=== PATIENT | female | born 1985 | race Caucasian/White ===

== ENCOUNTER 2021-01-23 10:42 | Emergency (ER) | payer OTHER, SELFPAY ==
[2021-01-23 10:52] VITALS: BP 156/94; PULSE 98; RESP 16; TEMP 36.5; O2SAT 99
--- NOTE | 2021-01-23 10:53 | ED.FEMALEGU ---
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 This is associate with mild left, low back pain, prior to fever 101 p.o., and similar symptomatology to prior UTIs. No vomiting/diarrhea [she has nausea], vaginal discharge; back pain is worse with motion, better at rest-and therefore not colicky. She reports she has had prior renal imaging which was negative for kidney stones, for prior history of endometriosis with cysts, and left oophorectomy. Patient advised go to hospital if not improved Related Data Allergies Allergy/AdvReac Type Severity Reaction Status Date / Time No Known Allergies Allergy Unknown Verified 01/23/21 10:44 Review of Systems Review of Systems: The patient has been informed that they may have pre-hypertension or Hypertension based on a BP reading in the department. I recommend that the patient call the primary care provider listed on their discharge instructions or a physician of their choice this week to arrange follow up for further evaluation of possible pre-hypertension or Hypertension General/Constitutional: No weight loss,fever now Eyes: N0: Redness,discharge Ears/Nose/Throat: No: Epistaxis,ear discharge Respiratory: Denies: Hemoptysis Gastrointestinal: No Vomiting now, Bleeding-rectal Skin: No Lumps, eruption Neurologic: No Focal Weakness,Sz Hematologic: Denies: Petechiae/Purpura Psychiatric: No: Suicida ideationl All Other Systems: Reviewed and Negative Exam Narrative: General Appearance: Well nourished/obese well appearing, No distress EYE: PERRLA, Conjunctiva clear Ears: External ear normal Nose: Normal nose Mouth/Throat: Normal appearing, Normal lips Neck: Supple Respiratory: Airway patent, No respiratory distress Cardiovascular: RRR Abdomen: Soft, Non-tender, no CVAT Musculoskeletal: Full ROM Skin: Warm, Dry Neurological: A&O x3, CN II-X intact Psychiatric: Normal mood, Normal affect Course Vital Signs Vital signs: Vital Signs Temperature 97.7 F 01/23/21 10:52 Pulse Rate 98 01/23/21 10:52 Respiratory Rate 16 01/23/21 10:52 Blood Pressure 156/94 H 01/23/21 10:52 Pulse Oximetry 99 01/23/21 10:52 Temperature 97.7 F 01/23/21 10:52 Pulse Rate 98 01/23/21 10:52 Respiratory Rate 16 01/23/21 10:52 Blood Pressure 156/94 H 01/23/21 10:52 Pulse Oximetry 99 01/23/21 10:52 MDM - Female Genitourinary Lab Data Labs: Urine Glucose Negative Reference Range: Negative Urine Bilirubin Negative Reference Range: Negative Urine Ketone Negative Reference Range: Negative Urine Specific [place] 1.030 Reference Range:1.001-1.035 Urine Blood 3+ Reference Range: Negative * * Urine pH 5.5 Reference Range: 5.0-9.0 Urine Protein Negative Reference Range: Negative Urine Urobilinogen 0.2 Reference Range: 0.2-1.0 Urine Nitrate Negative Reference Range: Negative Urine Leukocyte Negative Referenc
== END 2021-01-23 11:26 | disposition home or self-care (01) ==
PROVIDERS: Emergency Provider Emergency Medicine
DX: N30.01 Acute cystitis with hematuria (principal)
CPT/HCPCS: 81003; 87086; 99213; G0463

== ENCOUNTER → 2021-06-08 00:04 | Outpatient (CLI) | payer OTHER, SELFPAY ==
[2021-06-08 16:46] LABS: SARS-CoV-2 RNA PCR Negative
== END ==
PROVIDERS: Visit Provider Obstetrics & Gynecology
DX: Z01.812 Encounter for preprocedural laboratory examination (principal); Z20.822 Contact with and (suspected) exposure to COVID-19
CPT/HCPCS: C9803; U0003; U0005

== ENCOUNTER 2021-06-10 14:40 | Outpatient (CLI) | payer OTHER, SELFPAY | END 2021-06-10 14:41 | disposition home or self-care (01) | LOC: ANHSURGERY 14:42 | PROVIDERS: Visit Provider Obstetrics & Gynecology | DX: N80.9 Endometriosis, unspecified (principal); Z01.818 Encounter for other preprocedural examination | CPT/HCPCS: 36415; 86850; 86900; 86901 ==

== ENCOUNTER 2021-06-12 01:48 | Day surgery (SDC) | payer OTHER, SELFPAY ==
[2021-06-05 10:43] VITALS: BMI 40.0
--- NOTE | 2021-06-05 10:58 | PC.NURSE ---
Report to the Outpatient Waiting Room, entrance under the green pavilion located off [facility], at time 6:00 on date 06/12/21. OR Time: 7:30. - You and your visitor will be asked a series of questions to screen for COVID 19 for your protection. - A mask is required within the hospital. One visitor will be allowed to accompany the patient into the hospital. Patients visitor will be instructed to remain with patient at all times or leave the building. We will allow the visitor to come back to the postoperative area when patient is ready. Preoperative COVID Testing Requirements: COVID TEST 06/08 AT 8:30 No COVID Test needed if: (proof is required; if not received patient will have Rapid Test prior to entry) - Patient has received COVID Vaccine at least 14 days prior to procedure date or - Patient has positive COVID test result within last 90 days of surgery date. COVID Test needed if above criteria is not met If not COVID vaccinated a COVID test must be conducted within 72 hours of surgery and patient is asked to isolate self from time of testing until procedure. You will go to the [facility] for your COVID testing. The [facility] site is located at the corner of [address] [facility]. You will only be called if COVID results are positive and your surgeon may reschedule your elective surgery date. Patients may have clear liquids (water, carbonated beverages, clear teas, apple juice) until 3 hours prior to surgery (4:30) with a maximum of 20 ounces. - No food from midnight until time of surgery Take the following medications with a SIP of water the morning of surgery: NONE Medications to discontinue per physician: N/A Date to take last dose: N/A Please no make-up, nail maltese, hairspray, perfume, deodorant, or body powder the day of surgery. No jewelry (including any body piercings) or valuables the day of surgery, leave them at home. Please take a shower or bath the night before, or the morning of, surgery with an antibacterial soap. Wear comfortable, loose fitting clothing. - Jewelry must be removed prior to entering the operating room. Rings and piercings that are not removed may be cut off. - The hospital will not accept responsibility for valuables. - Please leave all valuables, including medications, at home the day of surgery. If you are going home after surgery, a licensed truck driver rubbish collector must drive you home. - NO public transportation without another adult. - We recommend that an adult stay with you for 24 hours following discharge. - We also recommend that you do not drive, make important decision, drink alcoholic beverages, or take any drugs that were not prescribed by your health care provider for at least 24 hours after your discharge time. Follow any additional instructions given to you from your surgeon. Telephone instructions given to DUKE PEDERSEN and asked if any additional questions and then verbalized understanding. Patient advised to call surgeon office or pre surgery nurse liaison [phone] if any additional questions.
[2021-06-12] VITALS (9 sets, daily range): BP systolic 132–150; BP diastolic 72–92; PULSE 87–112; RESP 16–20; TEMP 36.4–37.1; O2SAT 94–100
[2021-06-12] MEDS: ACETAMINOPHEN 500 MG TABLET 1000 MG PO (06:10)
[2021-06-12] MEDS: KETOROLAC 15 MG/ML VIAL (*BKC) IV PUSH (06:38)
--- NOTE | 2021-06-12 06:47 | WPDANESEPPF ---
Anes - Initial Pre Proc Eval Procedure: Operation Date: 06/12/21 07:30 Proposed Procedures p Total Laparoscopic Hysterectomy with Bilateral Salpingectomy - Rashid Sarabia MD Date/Time: 06/12/21 06:47 Surgeon: Rashid Sarabia MD Pre Op Diagnosis: Endometriosis Menorrhagia Patient Data Age: 36 Gender: F Height: 1.6 m Weight: 99.6 kg Allergies Allergy/AdvReac Type Severity Reaction Status Date / Time No Known Allergies Allergy Unknown Verified 06/12/21 05:58 Home Medications Medication Instructions Recorded Confirmed Type linaclotide 72 mcg capsule 72 mcg PO DAILY PRN 30 Days #30 cap 05/31/21 06/12/21 Rx Patient hx anesthesia problems: none Family hx anesthesia problems: none Results Review: All pre-operative results and documents have been reviewed as part of the pre-operative evaluation. [facility] Past Medical History Medical History (Updated 06/12/21 @ 06:47 by Dalton Rosa MD) Constipation Endometriosis Family hx of colon cancer GERD (gastroesophageal reflux disease) Obesity Surgical History Surgical History (Updated 06/12/21 @ 06:47 by Dalton Rosa MD) H/O laparoscopy Social History Social History Smoking status: Never smoker Alcohol intake: current Alcohol use details: EVERY OTHER MONTH Substance use: never Substance use type: does not use Living arrangements: with family Spiritual care concerns: No Anes - Eval Final PreProcedure Day of Procedure 06/12/21 06:47 Patient weight: obese Heart: regular rate and rhythm Lungs: clear to auscultation Airway: Mallampati scale class III Neurological: alert and oriented Last oral intake: >/= 8 hours ASA classification: III Emergent: no Anesthetic plan: proceed Anesthesia type and monitoring: general ETT and standard monitoring Results Review: All pre-operative results and documents have been reviewed as part of the pre-operative evaluation. Informed Consent: The patient's anesthetic plan and its attendant risks and benefits were discussed with the patient/family/POA. Questions were solicited and answers provided to the satisfaction of the patient/family/POA.
[2021-06-12] MEDS: LACTATED RINGERS 1,000 ML 30 ML IV CONT ×2 (06:57→11:54)
[2021-06-12] MEDS: SCOPOLAMINE 1.5 MG PATCH TRANSDERM (06:57)
--- NOTE | 2021-06-12 07:13 | WPDHPUPDATE1 ---
History and Physical Update Update Date/Time: 06/12/21 07:13 History and Physical has been reviewed, including an updated exam of the patient. There are NO changes in the patient's condition. Risks, benefits, and alternatives have been discussed and questions answered. Patient agrees to proceed with procedure.
[2021-06-12] MEDS: ceFAZolin 2 GM/D5W 50 ML 2 GM/50 ML BAG IVPB (07:30)
--- NOTE | 2021-06-12 08:45 | SUR.OPER ---
Dr Cruz in OR [id number] consult for bowel adhesion.
--- NOTE | 2021-06-12 10:33 | SUR.OPER ---
position maintained and urine remains yellow.
[2021-06-12] MEDS: ceFAZolin SODIUM 1 GM VIAL IV PUSH (11:22)
--- NOTE | 2021-06-12 11:47 | W.PM.PROC2 ---
Procedure Note - Detailed Date of Procedure 06/12/21 Pre-op Diagnosis Endometriosis, Menorrhagia Post-op Diagnosis same (Abdominal and pelvic adhesions, extensive) Procedure Performed Total laparoscopic hysterectomy and right salpingo-oophorectomy, adhesiolysis-1.5 hours Surgeon Rashid Sarabia MD Anesthesia general Indications Pelvic pain, endometriosis Findings Moderate sized uterus, normal appearing right ovary and normal-appearing right tubes. Adhesions between the colon and the anterior abdominal wall, the omentum and the anterior abdominal wall, the rectum and the left adnexa and uterus. There was dense scar tissue in the left adnexa and the paracervical tissue bilaterally. There was dense scar tissue in the posterior cervical area and the rectum in the cul-de-sac. Description of Procedure This patient was taken to the operating room. She was prepped and draped in the dorsal lithotomy position after induction of general anesthesia. The uterine manipulator and Ksenia cup were placed. This was done with a speculum and tenaculum. The speculum was placed. The cervix was grasped with a tenaculum. The stay sutures were placed at 3 and 9:00 a.m.. The stay sutures of 0 Vicryl were brought through the appropriately sized Ksenia cup. The tip of the TONG manipulator was placed in the intrauterine cavity. The cup was slid into place around the cervix and into the fornices. It was locked into place. The sutures were then wrapped around the handle and tied under tension. A 5 mm skin incision was made in the left upper quadrant the abdomen. A 5 mm trocar was inserted into the intrauterine cavity under direct visualization of the scope. Pneumoperitoneum was achieved. A left lower quadrant 11 mm incision was made with scalpel. An 11 mm trocar was inserted into the anterior abdominal cavity under direct visualization the scope. A 5 mm infraumbilical incision was made with a scalpel and a 5 mm trocar was inserted the intra-abdominal cavity under direct visualization of the scope. During the course of this surgery extensive he has a lysis was performed. There was intra-abdominal adhesions between the colon and the omentum to the anterior abdominal wall. The colon and rectum were adherent to the left adnexa. There was dense scar tissue in the left adnexa and the posterior cervix/cul-de-sac. The paracervical tissue bilaterally was dense and had the consistency of leather. It was difficult to grasp and difficult to cut. It was vascular. This surgery was a lengthy struggle with scar tissue. The adhesion lysed on the sharp and dull blunt dissection, cautery, scissors, LigaSure. Bilateral ureteral lysis was performed. It was very difficult due to the scar tissue present. This was done from the pelvic brim down to the uterine artery. This was done with careful dissection using sharp and blunt dissection. On the right the infundibulopelvic ligaments were isolated after identification of the ureters bilaterally on the right infundibulopelvic ligaments were cauterized and transected with LigaSure cautery. On the right-The para ovarian tissue was cauterized and transected with LigaSure cautery bilaterally. Moving around the ovary into the broad ligament the tissue was cauterized transected with LigaSure cautery. The round ligaments were cauterized transected with LigaSure cautery. In a stepwise fashion along the lateral aspects of the uterus the round ligament and broad ligaments were cauterized transected down to the level of the uterine arteries. A bladder flap was created in the bladder was moved distally to the end of the cervix and over the Ksenia cup. The bilateral uterine arteries were cauterized and transected. Colpotomy was then performed. In a circumferential fashion the vagina was transected using unipolar cautery. The incision was made down on the Ksenia cup. The uterus, cervix, fallopian tubes and ovaries were taken out through the vagina. A pneumo
[2021-06-12] MEDS: fentaNYL CITRATE INJ (*CRX) 100 MCG/2 ML VIAL 25 MCG IV PUSH ×4 (12:19→12:38)
[2021-06-12] MEDS: DEXTROSE 5%/0.45% SOD CHL 1,000 ML 125 ML IV CONT (13:15)
[2021-06-12] MEDS: KETOROLAC 30 MG/ML VIAL (*BKC) IV PUSH (14:27)
[2021-06-12] MEDS: HYDROcodone/acetaminophen (*CRX) 5-325 MG TABLET 1 TAB PO ×2 (17:18→19:51)
[2021-06-13] MEDS: HYDROcodone/acetaminophen (*CRX) 10-325 MG TABLET 1 TAB PO ×2 (03:50→09:18)
[2021-06-13] MEDS: IBUPROFEN 600 MG TABLET PO ×2 (03:50→09:18)
[2021-06-13 03:53] VITALS: BP 130/84; PULSE 106; RESP 16; TEMP 36.6
--- NOTE | 2021-06-13 08:03 | P.PNOB_ITS ---
TRANSACTIONAL ATTORNEY - A/P Postoperative Procedures: Procedures Operation Date: 06/12/21 07:30 Actual Procedure Side Surgeon p Total Laparoscopic Hysterectomy with Right Salpingo-Oophorectomy,Lysis of Adhesions Bilateral Rashid Sarabia MD Postoperative day: 1 Postoperative status: doing well Postoperative plan: see orders Time Spent With Patient Time: Total time spent is greater than 50% in coordination of care (as documented) at patient's floor/unit and/or counseling patient: Time with patient: less than 15 minutes TRANSACTIONAL ATTORNEY- PN:Subj Post-Op Subjective Date/time seen: 06/13/21 08:03 Subjective: patient reports feeling better, patient has no complaints and pain is well controlled Exam Const: General: healthy appearing, comfortable and no acute distress Resp: Auscultation: clear to auscultation bilaterally, no rales, no rhonchi and no wheezes Cardio: Rate: regular rate Heart sounds: no click, no murmurs and no rubs GI: Inspection: non-distended Auscultation: normal bowel sounds Extrem: General: normal to inspection, no pedal edema and no calf tenderness TRANSACTIONAL ATTORNEY - PN: Obj Data Vital Signs Vital Signs: Vital Signs - 24 hr 06/12/21 11:54 06/12/21 12:05 06/12/21 12:20 Temperature 97.6 F Pulse Rate 104 H 101 H 105 H Respiratory Rate 17 20 16 Blood Pressure 141/79 H 148/86 H 143/81 H Pulse Oximetry 99 100 99 06/12/21 12:35 06/12/21 12:50 06/12/21 13:20 Temperature 98.3 F Pulse Rate 104 H 106 H 104 H Respiratory Rate 20 18 20 Blood Pressure 132/74 133/72 150/92 H Pulse Oximetry 94 94 98 06/12/21 16:20 06/12/21 20:25 06/13/21 03:53 Temperature 98.2 F 97.8 F Pulse Rate 98 112 H 106 H Respiratory Rate 20 16 16 Blood Pressure 143/86 H 142/92 H 130/84 Pulse Oximetry 97 Intake/Output Intake/Output: Intake & Output 06/10/21 06/11/21 06/12/21 06/13/21 23:59 23:59 23:59 23:59 Intake Total 650 Output Total 390 Balance 260 Meds/Results Medications: Active Medications Generic Name Dose Route Start Last Admin Trade Name Freq PRN Reason Stop Dose Admin Hydrocodone Bitart/Acetaminophen 1 tab 06/12/21 12:58 06/12/21 19:51 Hydrocodone/Acetaminophen (*Crx) 5-325 Mg Tablet PO 1 tab Q3H PRN Administration Pain Rated 5 or Less Hydrocodone Bitart/Acetaminophen 1 tab 06/12/21 12:58 06/13/21 03:50 Hydrocodone/Acetaminophen (*Crx) 10-325 Mg Tablet PO 1 tab Q3H PRN Administration Pain Rated 6 or Greater Ibuprofen 600 mg 06/12/21 12:58 06/13/21 03:50 Ibuprofen 600 Mg Tablet PO 600 mg Q6H PRN Administration Cramping Miscellaneous Information 0 each 06/12/21 00:01 Linzess 72 Mcg Is Nonformulary - Can Patient Bring From Home? XX 07/12/21 00:00 CLARIFY DAWNA Non-Formulary Medication 72 mcg 06/12/21 12:58 Linaclotide [Linzess] PO DAILY PRN constipation
[2021-06-13 08:50] VITALS: BP 129/86; PULSE 100; RESP 20; TEMP 36.8; O2SAT 97
== END 2021-06-13 11:15 | disposition home or self-care (01) ==
LOC: ANHSURGERY 05:46 → ANHOB2 13:01
PROVIDERS: Visit Provider Obstetrics & Gynecology
PROC: 0UT9FZZ Resection of Uterus, Via Natural or Artificial Opening With Percutaneous Endoscopic Assistance (ICD-10-PCS; CPT 58571; principal; 2021-06-12 07:30)
DX: N92.0 Excessive and frequent menstruation with regular cycle (principal); N80.3 Endometriosis of pelvic peritoneum; N73.6 Female pelvic peritoneal adhesions (postinfective); R10.2 Pelvic and perineal pain; N88.8 Other specified noninflammatory disorders of cervix uteri; N80.0 Endometriosis of uterus; N83.01 Follicular cyst of right ovary; K21.9 Gastro-esophageal reflux disease without esophagitis; E66.9 Obesity, unspecified; Z68.38 Body mass index [BMI] 38.0-38.9, adult
CPT/HCPCS: 58571; 36415; 86850; 86900; 86901; 88307; 99199; A9270; C9803; J0330; J0360; J0690; J1100; J1170; J1885; J2250; J2704; J2710; J2765; J3010; J7030; J7120; U0003; U0005

== ENCOUNTER 2021-06-21 17:04 | Observation (INO) | payer OTHER, SELFPAY ==
--- NOTE | ~2021-06-21 | CT_ITS ---
EXAMINATION: CT abdomen pelvis w con DATE: 06/21/2021 18:32 INDICATION: Hysterectomy last Thursday. Fever, frequency and urgency while urinating. TECHNIQUE: Computed tomography (CT) of the abdomen and pelvis was performed with 100 cc Omnipaque 350 intravenous contrast. The dose-length product was 1362.97 mGy-cm. Automated exposure control and iterative reconstruction technique were employed. COMPARISON: CT dated 06/24/2014 FINDINGS: Lung bases unremarkable. Heart size normal. There are gallstones. There are calcified granu jarocho in the spleen. The liver, pancreas, adrenal glands and kidneys are unremarkable. There is fluid , fat stranding and gas in the hysterectomy bed, likely postoperative, although infection is not excl uded. Nonobstructive bowel gas pattern. No acute osseous abnormality. There is mild thickening of the bladder, although this is not well distended. IMPRESSION: 1. Fluid, fat stranding and gas in the hysterectomy bed which may be postsurgical, although infection is not excluded. 2: Cholelithiasis. 3: Mild bladder wall thickening which may be due to underdistention, although cystitis not excluded. Reviewed, dictated and finalized at location A. OYEE DEVELOPMENT DIRECTOR IMPRESSION: 1. Fluid, fat stranding and gas in the hysterectomy bed which may be postsurgic al, although infection is not excluded. 2: Cholelithiasis. 3: Mild bladder wall thickening which may be due to underdistention, although cystitis not excluded.
--- NOTE | ~2021-06-21 | XR_ITS ---
EXAMINATION: XR chest 2V 06/21/2021 17:59 INDICATION: Postop fever. PROCEDURE: 2 view chest COMPARISON: No prior studies for comparison. FINDINGS: The lungs are clear. The cardiomediastinal silhouette is within normal limits. There are no pleural effusions. There is no pneumothorax suspected. IMPRESSION: 1: NO ACUTE CARDIOPULMONARY DISEASE. Reviewed, dictated and finalized at location A. INSULATOR RUBBER
[2021-06-21 17:07] VITALS: BP 141/94; PULSE 124; RESP 20; TEMP 37.2; O2SAT 100
--- NOTE | 2021-06-21 17:30 | ED.FEVER ---
HPI - Fever General Chief Complaint: Fever <Diane Nunez PA-C - Last Filed: 06/21/21 19:46> Stated Complaint: Fever <GILDARDO Valentin Last Filed: 06/21/21 19:46> Time Seen by Provider: 06/21/21 17:11 <Diane Nunez PA-C - Last Filed: 06/21/21 19:46> Source: patient <GILDARDO Valentin Last Filed: 06/21/21 19:46> Mode of arrival: ambulatory <GILDARDO Valentin Last Filed: 06/21/21 19:46> Limitations: no limitations <GILDARDO Valentin Last Filed: 06/21/21 19:46> History of Present Illness HPI Narrative: This is a 36-year-old female who presents to the ED with complaints of postop fever. Patient reports she had a hysterectomy with bilateral salpingectomy and left oophorectomy done last Thursday, 06/12, done by Dr. Sarabia. She states a few days after surgery she began urinating more frequently throughout the day. She is only urinating very small amounts and feels like she is not completely emptying her bladder. She reports some mild discomfort at the end of micturition, but denies any burning throughout. Yesterday, she developed hematuria, stating she noticed a few drops of bright red blood at the end of micturition. She reports 3-4 episodes of this hematuria. She denies any vaginal bleeding or discharge. She then developed a fever up to 101.8 ?F last night. She took Tylenol and ibuprofen and states her fever broke overnight. This morning her temperature was in the low 100s. She discussed this with Dr. Sarabia, who recommended she present to the ED for further evaluation. Patient also mentions having constipation. She had a bowel movement 2 days after surgery and another early this week, but has not had a BM in the last couple days. She has history of constipation and has been taking MiraLAX. Patient otherwise denies any abdominal pain, back pain, nausea, vomiting, rectal bleeding, cough, chest pain, shortness of breath. <GILDARDO Valentin Last Filed: 06/21/21 19:46> Related Data Allergies/Adverse Reactions: Allergies Allergy/AdvReac Type Severity Reaction Status Date / Time No Known Allergies Allergy Unknown Verified 06/21/21 19:23 <Diane Nunez PA-C - Last Filed: 06/21/21 19:46> Review of Systems Review of Systems: CONSTITUTIONAL: Reports fever, chills, and sweats. ENT: Denies rhinorrhea, congestion. CARDIOVASCULAR: Denies chest pain or edema. RESPIRATORY: Denies cough or dyspnea. GASTROINTESTINAL: Denies abdominal pain, nausea, vomiting, or diarrhea. GENITOURINARY: Reports urinary frequency, end micturition discomfort, and hematuria. GENITAL: Denies vaginal bleeding, discharge, or discomfort. MUSCULOSKELETAL: Denies back pain, joint pain, or myalgia. NEUROLOGIC: Denies headache, numbness, or weakness. <Diane Nunez PA-C - Last Filed: 06/21/21 19:46> All systems reviewed & are unremarkable except as noted in HPI and below <Diane Nunez PA-C - Last Filed: 06/21/21 19:46> [facility] Past Medical History Medical History: Medical History (Updated 06/21/21 @ 19:09 by Diane Nunez PA-C) Constipation Endometriosis Family hx of colon cancer GERD (gastroesophageal reflux disease) Obesity <Diane Nunez PA-C - Last Filed: 06/21/21 19:46> Surgical History Surgical History: Surgical History (Updated 06/21/21 @ 19:09 by Diane Nunez PA-C) H/O bilateral salpingectomy H/O hysterectomy with unilateral oophorectomy H/O laparoscopy History of endometrial ablation History of right oophorectomy History of tonsillectomy <Diane Nunez PA-C - Last Filed: 06/21/21 19:46> Social History Social History: Social History Smoking status: Never smoker Alcohol intake: current Alcohol use details: EVERY OTHER MONTH Substance use: never Substance use type: does not use Spiritual care concerns: No <Diane Nunez PA-C - Last Filed: 06/21/21 19:46> Exam Narrative:
[2021-06-21] MEDS: SODIUM CHLORIDE 0.9% IV 1,000 ML 999 ML IV CONT (17:51)
[2021-06-21 18:01] LABS: Basophils Absolute Auto 0.1 K/mm3 (0.0-0.1); Basophils Percent Auto 0.4 % (0.2-1.2); Eosinophils Absolute Auto 0.2 K/mm3 (0-0.3); Eosinophils Percent Auto 0.8 % (0-4.4); Hemoglobin 9.8 g/dL (12.0-15.0); Immature Granulocyte Absolute 0.15 K/mm3 (0.00-0.031); Immature Granulocyte Percent A 0.8 % (0-0.5); Lymphocytes Absolute Auto 2.11 K/mm3 (0.9-3.2); Lymphocytes Percent Auto 10.6 % (18.3-44.2); Mean Corpuscular HGB Conc 31.6 g/dl (32-36); Mean Corpuscular Hemoglobin 27.1 pg (26-34); Mean Corpuscular Volume 85.6 fl (80-100); Mean Platelet Volume 10.6 fl (7.4-10.4); Monocytes Absolute Auto 1.4 K/mm3 (0.1-0.6); Neutrophils Percent Auto 80.4 % (45.5-73.1); Platelet Count Result 412 k/mm3 (150-375); Red Blood Count 3.62 M/mm3 (4.2-5.4); Red Cell Distribution Width 13.7 % (11.5-14.5); White Blood Count 19.9 K/mm3 (4.5-10.0)
[2021-06-21 18:07] LABS: Add Urine Microscopic? YES; Appearance Urine Cloudy (Clear); Bacteria Urine Trace /hpf; Bilirubin Urine Negative (Negative); Blood Urine 2+ (Negative); Color Urine Yellow (Yellow); Glucose Urine UA Negative (Negative); Ketones Urine Negative (Negative); Leukocyte Esterase Ur 3+ LEU/UL (Negative); Mucus Urine Rare /lpf; Nitrate Urine Negative (Negative); Protein Urine 1+ mg/dL (Negative); Specific Grav Ur 1.018 (1.001-1.035); Squamous Epithelial Cell Urine Many /hpf (Few); WBC Urine >75 /hpf
[2021-06-21 18:09] LABS: Alanine Aminotransferase 24 U/L (4-35); Albumin Level 4.4 g/dL (3.5-5.1); Alkaline Phosphatase 108 U/L (38-126); Anion Gap 9 mmol/L (8-16); Aspartate Amino Transferase 23 U/L (14-36); Bilirubin,Total 0.3 mg/dL (0.2-1.3); Blood Urea Nitrogen 6 mg/dL (7-17); Calcium 8.8 mg/dL (8.4-10.2); Carbon Dioxide 26 mmol/L (22-30); Chloride 103 mmol/L (98-107); Estimated CRCL calculation 147 ml/min; Estimated Glomerular Filt Rate > 60; Glucose 125 mg/dL (65-110); Potassium 3.7 mmol/L (3.4-5.0); Sodium 138 mmol/L (137-145)
[2021-06-21 19:43] VITALS: BP 138/72; PULSE 88; RESP 20; O2SAT 99
[2021-06-21 19:45] LABS: Lactic Acid Reflex 0.8 mmol/L (0.7-2.1)
[2021-06-21 19:49] LABS: EDCOVIDSCREEN Negative (Negative)
[2021-06-21 20:31] VITALS: BP 148/72; PULSE 117; RESP 18; O2SAT 99
[2021-06-21 21:28] VITALS: BMI 39.9
[2021-06-21 21:41] VITALS: TEMP 38.4
[2021-06-21 22:00] VITALS: BP 127/58; PULSE 119; RESP 18; TEMP 38.4; O2SAT 96
--- NOTE | 2021-06-21 22:11 | PC.NURSE ---
This patient, Destiny Judge, was admitted to Medical Room 340-01. Patient/family oriented to hospital policies and general routines including ID bracelet, bed and alarms, visiting hours, pain management, procedures, bathroom and other care routines, personal items, smoking policy, room service/diet, and visiting hours. Information on how to activate the Rapid Response Team has been discussed. Patient/Family are encouraged to report perceived risks to care and to ask questions if they do not understand what they are told or what they should do.
[2021-06-21 23:34] VITALS: TEMP 37.4
[2021-06-22 06:00] VITALS: BP 137/87; PULSE 99; RESP 18; TEMP 36.4; O2SAT 98
[2021-06-22 07:15] VITALS: TEMP 36.4
[2021-06-22 08:00] VITALS: PULSE 99; RESP 18; O2SAT 98
--- NOTE | 2021-06-22 12:23 | PM.IMHP ---
H&P: HPI History of Present Illness Date/Time: 06/22/21 12:23This patient is a 36-year-old female who presented emergency department with a fever on urinary symptoms. She was evaluated there considered to have urinary tract infection. She had elevated white count. She was placed on the medical floor and observed a given IV antibiotics. She did have a febrile episode in the evening/ nighttime hours. She denies any nausea, vomiting, chills. Denies any chest pain or shortness of breath. she denies any heavy vaginal bleeding, she does have some spotting from time to time. She denies any flank pain. Chief Complaint: Fever Review of Systems Review of Systems: All systems reviewed & are unremarkable except as noted in HPI and below Constitutional: Constitutional: Denies chills, Denies fatigue, Denies fever(s) and Denies weakness Eyes: Eyes: Denies blurry vision, Denies change in vision, Denies loss of peripheral vision, Denies loss of vision, Denies other visual disturbances and Denies eye pain ENT: Denies vertigo, Denies dizziness, Denies hearing loss, Denies mouth pain, Denies nasal obstruction, Denies neck mass and Denies neck pain Cardiovascular: Cardiovascular: Denies chest pain, Denies diaphoresis, Denies syncope, Denies leg edema and Denies dyspnea Respiratory: Respiratory: Denies chest congestion, Denies cough, Denies hemoptysis, Denies dyspnea and Denies wheezing Gastrointestinal: Gastrointestinal: Denies abdominal pain, Denies constipation, Denies diarrhea, Denies nausea and Denies vomiting Genitourinary: Genitourinary: Denies hematuria, Denies change in libido, Denies nocturia, Denies genital lesions, Denies flank pain and Denies urinary urgency Musculoskeletal: Musculoskeletal: Denies abnormal gait, Denies back pain, Denies myalgias, Denies arthralgias, Denies joint swelling, Denies muscle weakness and Denies neck pain Integumentary/Breasts: Skin/Breast: Denies swelling, Denies breast pain, Denies breast mass, Denies dry skin, Denies nipple discharge, Denies unusual bruising and Denies jaundice Neurologic: Denies Neuro-related abnormal movements, Denies Abnormal speech present, Denies abnormal gait, Denies behavioral changes, Denies confusion, Denies vertigo, Denies dizziness, Denies syncope, Denies loss of vision, Denies memory loss, Denies convulsions and Denies weakness Psychiatric: Psychiatric: Denies abnormal sleep pattern, Denies behavioral changes, Denies change in libido, Denies confusion, Denies depression, Denies anhedonia and Denies memory loss Endocrine: Endocrine: Reports no additional endocrine complaints, Denies change in libido and Denies fatigue Hematologic/Lymphatic: Hematologic/Lymphatic: Reports no additional hematologic/lymphatic complaints Allergic/Immunologic: Allergic/Immunologic: Reports no additional allergic/immunologic complaints and Denies wheezing PMFSH Past Medical History Medical History (Updated 06/21/21 @ 19:09 by Diane Nunez PA-C) Constipation Endometriosis Family hx of colon cancer GERD (gastroesophageal reflux disease) Obesity Surgical History Surgical History (Updated 06/21/21 @ 19:09 by Diane Nunez PA-C) H/O bilateral salpingectomy H/O hysterectomy with unilateral oophorectomy H/O laparoscopy History of endometrial ablation History of right oophorectomy History of tonsillectomy Social History Social History Smoking status: Never smoker Alcohol intake: never Alcohol use details: EVERY OTHER MONTH Substance use: never Substance use type: does not use Spiritual care concerns: No Meds Home Medications and Allergies Home Medications Medication Instructions Recorded Confirmed Type linaclotide 72 mcg capsule 72 mcg PO DAILY PRN 30 Days #30 cap 05/31/21 06/21/21 Rx hydrocodone-acetaminophen 1 tablet PO Q4H PRN #25 tablet 06/13/21 06/21/21 Rx estradiol 1 mg PO DAILY 06/21/21 06/21/21 History
[2021-06-22] MEDS: NITROFURANTOIN MONOHYD MACROCR 100 MG CAP PO ×2 (13:01→20:59)
[2021-06-22 15:44] VITALS: BP 143/89; PULSE 101; RESP 16; TEMP 37.4; O2SAT 100
[2021-06-22] MEDS: HYDROcodone/acetaminophen (*CRX) 10-325 MG TABLET 1 TAB PO (18:05)
[2021-06-22 20:58] VITALS: BP 149/78; PULSE 101; RESP 18; TEMP 36.1; O2SAT 98
[2021-06-23] MEDS: HYDROcodone/acetaminophen (*CRX) 10-325 MG TABLET 1 TAB PO (04:39)
[2021-06-23 06:18] VITALS: BP 131/83; PULSE 98; RESP 16; TEMP 37.3; O2SAT 98
[2021-06-23 07:35] VITALS: PULSE 98; RESP 16; O2SAT 98
[2021-06-23] MEDS: NITROFURANTOIN MONOHYD MACROCR 100 MG CAP PO (09:26)
--- NOTE | 2021-06-23 12:24 | P.DS_ITS ---
DS: Admitting Diagnosis Discharge Date 06/23/21 Admitting Diagnosis Urinary tract infection DS: Discharge Diagnosis Discharge Diagnosis (1) Urinary tract infection: Qualifiers: Hematuria presence: with hematuria Urinary tract infection type: acute cystitis Qualified Code(s): N30.01 - Acute cystitis with hematuria Code(s): N39.0 - Urinary tract infection, site not specified Status: Acute DS: Summary Hospital Course Hospital Course: This patient is a 36-year-old female who is 4 days postop from a total laparoscopic hysterectomy. She was admitted through the emergency department with fever and urinary symptoms in leukocytosis. She was given IV antibiotics and observed. She did have 1 febrile episode documented. Antibiotics were continued for over 24 hours and she was to be discharged today. Status at Discharge Functional status at discharge: independent ambulation Time Spent with Patient Time attestation: Total time spent providing and/or coordinating discharge services: Time spent: Less than 30 minutes DS: Data Data Completed and Pending Labs on day of discharge: Preliminary micro results at discharge 06/21/21 19:28 Blood Culture - Preliminary Blood 06/21/21 19:28 Blood Culture - Preliminary Blood Discharge Plan Discharge Discharging Clinician: Rashid Sarabia Patient Disposition: Home, Self-Care Activity: pelvic rest Diet: regular Patient Instructions: Antibiotic Form Stand Alone Forms: General Discharge Information Follow-up/Referrals: Rashid Sarabia MD [Physician] - Discharge Medications: New nitrofurantoin monohyd/m-cryst [Macrobid] 100 mg Capsule 100 mg PO Q12HR 7 Days Qty: 14 RF: 0 Continued Linzess 72 mcg capsule 72 mcg PO DAILY PRN (Reason: constipation) 30 Days Qty: 30 RF: 2 estradiol 1 mg Tablet 1 mg PO DAILY RF: 0 polyethylene glycol 3350 [Miralax] 17 gram/dose Powder 17 g PO DAILY RF: 0 hydrocodone-acetaminophen 5-325 mg tablet 1 tablet PO Q4H PRN (Reason: pain) Qty: 25 RF: 0 Date of admission: 06/21/21 19:15 Primary Care Provider: PHYSICIAN,LITHOGRAPH PRINTER Admitting Provider: Rashid Sarabia Attending physician on admission: Rashid Sarabia Condition: Stable
== END 2021-06-23 14:25 | disposition home or self-care (01) ==
LOC: ANHED 19:09 → ANH3MED 20:32
PROVIDERS: Physician Assistant; Admitting Provider Obstetrics & Gynecology; Emergency Provider Emergency Medicine; Visit Provider Obstetrics & Gynecology
DX: N30.01 Acute cystitis with hematuria (principal); R50.9 Fever, unspecified; Z98.890 Other specified postprocedural states; K21.9 Gastro-esophageal reflux disease without esophagitis; Z20.822 Contact with and (suspected) exposure to COVID-19
CPT/HCPCS: 36415; 71046; 74177; 80053; 81001; 83605; 85025; 87040; 87086; 87088; 87426; 96361; 96365; 96367; 96375; 99285; A9270; C9803; G0378; J0131; J0696; J7030; Q9967

== ENCOUNTER 2022-04-22 07:50 | Emergency (ER) | payer SELFPAY ==
--- NOTE | ~2022-04-22 | CT_ITS ---
EXAMINATION: CT abdomen pelvis wo con DATE: 04/22/2022 09:16 INDICATION: Right flank pain TECHNIQUE: Computed tomography (CT) of the abdomen and pelvis was performed without intravenous contr ast. Automated exposure control and iterative reconstruction technique were employed. Exam dose: 139 0.10 mGy-cm total exam DLP. COMPARISON: 06/21/2021 CT abdomen pelvis with IV contrast material FINDINGS: The lung bases are clear. Heart size is within normal limits. No pericardial or pleural eff usion. At least 2 large faceted gallstones are noted, measuring up to 1.7 cm. No gallbladder wall thickening or pericholecystic fluid or fat stranding. No bile duct or pancreatic duct dilatation. No hepatic, splenic, pancreatic or adrenal space-occupying mass lesion. There is right nephromegaly, prominent right hydronephrosis and perinephric stranding due to an appro ximately 5.9 mm right ureteropelvic junction calculus. No other urinary tract calculus. No left hydroureteronephrosis. No renal space occupying mass lesion is evident on this limited noncontrast examination. The urinary bladder is unremarkable. Status post hysterectomy. Normal caliber of the abdominal aorta. There is some nonspecific small shotty nodes in the right lowe r quadrant. No intraperitoneal or retroperitoneal or pelvic mass lesion or adenopathy or ascites is d etected. Small fat-containing umbilical hernia. Bilateral osteitis condensans ilii. T9 vertebral body hemangioma. IMPRESSION: Approximately 5.9 mm obstructing right ureteropelvic junction calculus, hydronephrosis a nd perinephric stranding Cholelithiasis Reviewed, dictated and finalized at [facility]. Reviewed, dictated and finalized at [facility] VIORAL INTERVENTIONIST IMPRESSION: Approximately 5.9 mm obstructing right ureteropelvic junction calc ulus, hydronephrosis and perinephric stranding Cholelithiasis
--- NOTE | ~2022-04-22 | XR_ITS ---
Supine and upright views of the abdomen Clinical history: Right flank pain, UPJ stone Findings: Bowel gas pattern is nonspecific. No evidence for obstruction or free air. 6 mm round calci fication present projecting near the right L3 transverse process, possibly a mid right ureteral stone . Osseous structures are intact. Impression: Possible 6 mm mid right ureteral stone, as detailed above. Evaluation right kidney itself is suboptimal due to overlying bowel contents. Reviewed, dictated and finalized at [facility]. ING INSTRUCTOR Impression: Possible 6 mm mid right ureteral stone, as detailed above. Evaluation right kidney itself is suboptimal due to overlying bowel contents.
[2022-04-22 07:55] VITALS: BP 167/103; PULSE 88; RESP 16; TEMP 36.1; O2SAT 100
[2022-04-22] MEDS: SODIUM CHLORIDE 0.9% IV 1,000 ML 999 ML IV CONT (08:31)
[2022-04-22 08:39] LABS: Basophils Percent Auto 0.4 % (0.2-1.2); Eosinophils Absolute Auto 0.1 K/mm3 (0-0.3); Eosinophils Percent Auto 0.6 % (0-4.4); Hematocrit 40.1 % (37.0-47.0); Hemoglobin 12.8 g/dL (12.0-15.0); Immature Granulocyte Absolute 0.04 K/mm3 (0.00-0.031); Immature Granulocyte Percent A 0.4 % (0-0.5); Lymphocytes Absolute Auto 1.59 K/mm3 (0.9-3.2); Mean Corpuscular HGB Conc 31.9 g/dl (32-36); Mean Corpuscular Hemoglobin 26.9 pg (26-34); Mean Corpuscular Volume 84.2 fl (80-100); Mean Platelet Volume 10.4 fl (7.4-10.4); Monocytes Absolute Auto 0.7 K/mm3 (0.1-0.6); Monocytes Percent Auto 7.5 % (2.6-8.5); Neutrophils Absolute Auto 7.5 K/mm3 (1.3-6.7); Neutrophils Percent Auto 75.1 % (45.5-73.1); Platelet Count Result 297 k/mm3 (150-375); Red Blood Count 4.76 M/mm3 (4.2-5.4); Red Cell Distribution Width 13.7 % (11.5-14.5); White Blood Count 9.9 K/mm3 (4.5-10.0)
[2022-04-22 08:39] LABS: Add Urine Microscopic? YES; Appearance Urine Clear (Clear); Bilirubin Urine Negative (Negative); Blood Urine 2+ (Negative); Color Urine Yellow (Yellow); Glucose Urine UA Negative (Negative); Ketones Urine Negative (Negative); Leukocyte Esterase Ur Negative LEU/UL (Negative); Nitrate Urine Negative (Negative); Protein Urine Trace mg/dL (Negative); Urobilinogen Urine 0.2 mg/dL (<2.0); pH Urine 7.5 (5.0-9.0)
[2022-04-22 08:47] LABS: Bacteria Urine Trace /hpf; Mucus Urine Rare /lpf; RBC Urine 21-50 /hpf (0-2); Squamous Epithelial Cell Urine Few /hpf (Few); WBC Urine 0-3 /hpf
[2022-04-22 08:53] LABS: Alanine Aminotransferase 33 U/L (6-35); Albumin Level 5.2 g/dL (3.5-5.1); Alkaline Phosphatase 102 U/L (38-126); Anion Gap 12 mmol/L (8-16); Aspartate Amino Transferase 39 U/L (14-36); Bilirubin,Total 0.4 mg/dL (0.2-1.3); Blood Urea Nitrogen 15 mg/dL (7-17); Calcium 9.3 mg/dL (8.4-10.2); Carbon Dioxide 24 mmol/L (22-30); Chloride 103 mmol/L (98-107); Estimated CRCL calculation 78 ml/min; Estimated Glomerular Filt Rate > 60; Glucose 121 mg/dL (65-110); Lipase 117 U/L (23-300); Potassium 4.5 mmol/L (3.4-5.0); Sodium 139 mmol/L (137-145)
[2022-04-22] MEDS: MORPHINE SULFATE (*CRX) 4 MG/ML INJ IV PUSH ×2 (09:02→12:07)
[2022-04-22] MEDS: ONDANSETRON INJ 4 MG/2 ML VIAL IV PUSH (09:02)
--- NOTE | 2022-04-22 11:18 | PC.NURSE ---
Patient report received from TANNER Haque. All questions answered and care of patient assumed. Patient resting comfortably in stretcher. Continue to complain of mild pain but much improved after Morphine. VSS. Call-light within reach. Awaiting further orders and disposition.
--- NOTE | 2022-04-22 11:19 | ED.ABDPAIN ---
HPI - Abdominal Pain General Chief Complaint: Abdominal Pain Stated Complaint: abd pain Time Seen by Provider: 04/22/22 08:20 History of Present Illness HPI narrative: Patient is a 37-year-old female who presents ER with right-sided flank pain. Began last night. Radiates into her lower abdomen. She reports intermittently over the last month or so she has been having some crampy right lower quadrant pain but this is the first time she has had pain in the flank. No alleviating factors. Previously been having pain with eating. Related Data Home Medications Medication Instructions Recorded Confirmed estradiol 1 mg tablet 1 mg PO DAILY 06/21/21 06/21/21 polyethylene glycol 3350 17 17 g PO DAILY 06/21/21 06/21/21 gram/dose oral powder (Miralax) Allergies Allergy/AdvReac Type Severity Reaction Status Date / Time No Known Allergies Allergy Unknown Verified 04/22/22 08:27 Review of Systems Review of Systems: All systems reviewed & are unremarkable except as noted in HPI and below Constitutional: Constitutional: Denies chills, Denies fatigue and Denies fever(s) ENT: Denies nasal congestion and Denies sore throat Cardiovascular: Cardiovascular: Denies chest pain, Denies rapid heart rate and Denies radiating jaw, neck or arm pain Respiratory: Respiratory: Denies chest congestion, Denies cough and Denies dyspnea Gastrointestinal: Gastrointestinal: Reports abdominal pain, Reports nausea and Denies vomiting Genitourinary: Genitourinary: Denies hematuria, Denies nocturia, Denies pelvic pain and Reports flank pain PMFSH Past Medical History Medical History (Updated 04/22/22 @ 11:20 by Pernell Bautista MD) Constipation Endometriosis Family hx of colon cancer GERD (gastroesophageal reflux disease) Obesity Surgical History Surgical History (Updated 06/21/21 @ 19:09 by Diane Perez PA-C) H/O bilateral salpingectomy H/O hysterectomy with unilateral oophorectomy H/O laparoscopy History of endometrial ablation History of right oophorectomy History of tonsillectomy Social History Social History Smoking status: Never smoker Alcohol intake: never Alcohol use details: EVERY OTHER MONTH Substance use: never Substance use type: does not use Spiritual care concerns: No Exam Narrative: GENERAL: Uncomfortable-appearing, well-nourished, and in no acute distress. HEAD: Normocephalic, atraumatic. ENT: Mucous membranes moist. CHEST: Clear to auscultation. No respiratory distress. HEART: Regular rate and rhythm. Normal peripheral pulses. ABDOMEN: Soft, nontender, nondistended. No CVA tenderness. EXTREMITIES: Normal range of motion. No edema. SKIN: Warm, dry, no rash. NEURO: Alert and oriented x3. PSYCH: Normal mood and affect. Course Course Emergency Course: I discussed case with urology and they will reach out to contact the patient. They will likely schedule her for lithotripsy. Patient instructed to not take any anti-inflammatory medications such as naproxen/ibuprofen/aspirin. Discussed return precautions and patient verbalized understanding. Vital Signs Vital signs: Vital Signs Temperature 97.0 F L 04/22/22 07:55 Pulse Rate 88 04/22/22 07:55 Respiratory Rate 16 04/22/22 07:55 Blood Pressure 167/103 H 04/22/22 07:55 Pulse Oximetry 100 04/22/22 07:55 Oxygen Delivery Room Air 04/22/22 07:55 Temperature 97.0 F L 04/22/22 07:55 Pulse Rate 88 04/22/22 07:55 Respiratory Rate 16 04/22/22 07:55 Blood Pressure 167/103 H 04/22/22 07:55 Pulse Oximetry 100 04/22/22 07:55 Oxygen Delivery Room Air 04/22/22 07:55 MDM - Abdominal Pain Lab Data 04/22/22 08:29 04/22/22 08:29 Labs: Lab Results 04/22/22 04/22/22 04/22/22 Range/Units 08:29 08:29 08:30 WBC 9.9 (4.5-10.0) K/mm3 RBC 4.76 (4.2-5.4) M/mm3 Hgb 12.8 D (12.0-15.0) g/dL Hct 40.
[2022-04-22 12:20] VITALS: BP 142/82; PULSE 80; RESP 14; O2SAT 100
== END 2022-04-22 12:25 | disposition home or self-care (01) ==
PROVIDERS: Emergency Provider Emergency Medicine
DX: N13.2 Hydronephrosis with renal and ureteral calculous obstruction (principal); N80.9 Endometriosis, unspecified; K21.9 Gastro-esophageal reflux disease without esophagitis; E66.9 Obesity, unspecified; Z68.41 Body mass index [BMI] 40.0-44.9, adult; Z90.79 Acquired absence of other genital organ(s); Z90.721 Acquired absence of ovaries, unilateral; Z90.710 Acquired absence of both cervix and uterus; K80.20 Calculus of gallbladder without cholecystitis without obstruction
CPT/HCPCS: 36415; 74018; 74176; 80053; 81001; 83690; 85025; 96361; 96374; 96375; 99284; J2270; J2405; J7030

== ENCOUNTER 2024-02-22 06:38 | Emergency (ER) | payer OTHER, SELFPAY ==
--- NOTE | ~2024-02-22 | CT_ITS ---
CT abdomen pelvis wo con Ordering provider: Lisa Quintana MD History: 39 years Female with . rt flank paian . Comparison: April 22, 2022 Technique: CT abdomen and pelvis without IV and without oral contrast. Automated exposure control and iterative reconstruction technique were employed. The dose-length product was 1482.34 mGy-cm. Findings: VISUALIZED LOWER CHEST: Normal. UPPER ABDOMINAL ORGANS: Liver: Fat infiltration. Gallbladder: Cholelithiasis.. Spleen: Normal.Benign Calcific area. Stomach/duodenum: Normal. Pancreas: Normal. Adrenals: Normal. Kidneys: Tiny stone in the right kidney lower pole. Tiny stone in the left kidney midpole. No definit e ureteric stones or hydronephrotic changes seen bilaterally. PELVIC ORGANS: The bladder is underfilled. BOWEL AND MESENTERY: Colon: No evidence of diverticulitis. Normal appendix. Small Bowel: Normal. No obstruction. Peritoneum/mesentery: No free air or free fluid. No mesenteric lymphadenopathy. Small lymph nodes are seen in the right lower quadrant area. The largest measures 1.2 cm. RETROPERITONEUM: Normal aorta. No retroperitoneal lymphadenopathy. Small para-aortic lymph nodes ar e noted. MUSCULOSKELETAL: Superficial soft tissues: Tiny fat-containing umbilical hernia. Otherwise, The superficial soft tissu es are normal. Bones: Normal spine. Bilateral sacroiliitis. IMPRESSION: 1. Tiny stones in both kidneys. No evidence of ureteric stones or hydronephrotic changes. 2. No evidence of appendicitis, diverticulitis or intestinal obstruction. 3. Cholelithiasis. 4. Fat infiltration of the liver. Reviewed, dictated and finalized at location A. INERY DEPARTMENT MANAGER IMPRESSION: 1. Tiny stones in both kidneys. No evidence of ureteric stones or hydronephrot ic changes. 2. No evidence of appendicitis, diverticulitis or intestinal obstruction. 3. Cholelithiasis. 4. Fat infiltration of the liver.
--- NOTE | 2024-02-22 06:41 | ED.ABDPAIN ---
HPI - Abdominal Pain General Chief Complaint: Urogenital-Female Stated Complaint: R side flank pain Time Seen by Provider: 02/22/24 06:41 History of Present Illness HPI narrative: error Related Data Home Medications Medication Instructions Recorded Confirmed estradiol 1 mg tablet 1 mg PO DAILY 06/21/21 06/21/21 polyethylene glycol 3350 17 17 g PO DAILY 06/21/21 06/21/21 gram/dose oral powder (Miralax) Allergies Allergy/AdvReac Type Severity Reaction Status Date / Time No Known Allergies Allergy Unknown Verified 04/22/22 08:27 PMFSH Past Medical History Medical History (Updated 02/22/24 @ 06:54 by Leonardo Ramirez MD) Constipation Endometriosis Family hx of colon cancer GERD (gastroesophageal reflux disease) Obesity Surgical History Surgical History (Updated 06/21/21 @ 19:09 by Diane Perez PA-C) H/O bilateral salpingectomy H/O hysterectomy with unilateral oophorectomy H/O laparoscopy History of endometrial ablation History of right oophorectomy History of tonsillectomy Social History Social History Smoking status: Never smoker Alcohol intake: never Alcohol use details: EVERY OTHER MONTH Substance use: never Substance use type: does not use Living arrangements: with family Spiritual care concerns: No Discharge Plan Discharge Clinical Impression: Abdominal pain Patient Disposition: Still a Patient Condition: Stable Prescriptions: No Action Linzess 72 mcg capsule 72 mcg PO DAILY PRN (Reason: constipation) 30 Days Qty: 30 2RF estradiol 1 mg Tablet 1 mg PO DAILY polyethylene glycol 3350 [Miralax] 17 gram/dose Powder 17 g PO DAILY nitrofurantoin monohyd/m-cryst [Macrobid] 100 mg Capsule 100 mg PO Q12HR 7 Days Qty: 14 0RF tamsulosin 0.4 mg capsule 0.4 mg PO DAILY Qty: 7 0RF ondansetron 4 mg tablet,disintegrating 4 mg PO Q6H PRN (Reason: nausea and vomiting) Qty: 10 0RF oxycodone-acetaminophen [Percocet] 5-325 mg tablet 1 tablet PO Q6H PRN (Reason: pain) Qty: 20 0RF hydrocodone-acetaminophen 5-325 mg tablet 1 tablet PO Q4H PRN (Reason: pain) Qty: 25 0RF Follow-up/Referrals: UNKNOWN,DOCTOR [Primary Care Provider] -
[2024-02-22 06:42] VITALS: BP 201/120; PULSE 102; RESP 20; TEMP 37; O2SAT 95
--- NOTE | 2024-02-22 06:54 | PC.NURSE ---
patient was given a urine cup. asked patient to use the restroom and bring cup back to room
--- NOTE | 2024-02-22 07:22 | ED.FEMALEGU ---
HPI - Female Genitourinary General Chief complaint: Urogenital-Female Stated complaint: R side flank pain Time Seen by Provider: 02/22/24 06:41 Source: patient History of Present Illness HPI Narrative: 39 years old white female drove herself to the emergency room complaining of right lower back pain started over 1 month ago, was seen at [facility] 3 weeks ago with negative workup including CT scan and urine and blood test. Patient is telling me she was discharged on antibiotic for possible intra-abdominal infection, no improvement. Patient report that the pain is steady, dull aching, no radiation, associated with no fever, no chills, no nausea or vomiting, no vaginal bleeding or discharge. Patient clean houses. Related Data Home Medications Medication Instructions Recorded Confirmed estradiol 1 mg tablet 1 mg PO DAILY 06/21/21 06/21/21 polyethylene glycol 3350 17 17 g PO DAILY 06/21/21 06/21/21 gram/dose oral powder (Miralax) Allergies Allergy/AdvReac Type Severity Reaction Status Date / Time No Known Allergies Allergy Unknown Verified 04/22/22 08:27 Review of Systems Review of Systems: All systems reviewed & are unremarkable except as noted in HPI and below PMFSH Past Medical History Medical History (Updated 02/22/24 @ 08:59 by Lisa Quintana MD) Constipation Endometriosis Family hx of colon cancer GERD (gastroesophageal reflux disease) Obesity Surgical History Surgical History (Updated 06/21/21 @ 19:09 by Diane Perez PA-C) H/O bilateral salpingectomy H/O hysterectomy with unilateral oophorectomy H/O laparoscopy History of endometrial ablation History of right oophorectomy History of tonsillectomy Social History Social History Smoking status: Never smoker Alcohol intake: never Alcohol use details: EVERY OTHER MONTH Substance use: never Substance use type: does not use Living arrangements: with family Spiritual care concerns: No Exam Narrative: General appearance: Well-developed, well-nourished Skin: Normal color Head: Normocephalic, nontraumatic Eyes: Clear conjunctiva ENT: Oropharynx normal, ears normal, nose normal Neck: Supple, nontender Chest and respiratory: Airway patent, no respiratory distress, no accessory muscle use Heart: Regular rate/rhythm Abdomen: Soft, nontender, no organomegaly, quiet bowel sounds Vascular: Normal peripheral pulses, normal capillary refill. Musculoskeletal: Tenderness right paraspinous muscles lumbar area, no bruises, no swelling or rash Neurologic: Alert and oriented ?3, MANAGER MINING is normal as tested, no gross motor deficit Course Vital Signs Vital signs: Vital Signs Temperature 37.0 C 02/22/24 06:42 Pulse Rate 102 H 02/22/24 06:42 Respiratory Rate 20 02/22/24 06:42 Blood Pressure 201/120 H 02/22/24 06:42 Pulse Oximetry 95 02/22/24 06:42 Oxygen Delivery Room Air 02/22/24 06:42 Temperature 37.0 C 02/22/24 06:42 Pulse Rate 102 H 02/22/24 06:42 Respiratory Rate 20 02/22/24 06:42 Blood Pressure 201/120 H 02/22/24 06:42 Pulse Oximetry 95 02/22/24 06:42 Oxygen Delivery Room Air 02/22/24 06:42 MDM - Female Genitourinary MDM Narrative Medical decision making narrative: differential diagnosis include muscular strain/ sprain, patient works as a housekeeper/laundry assistant, physical examination showing tenderness paraspinous muscles Blood workup today showed no acute abnormalities Urinalysis showed no acute abnormalities, CT abdomen and pelvis with doubt contrast showed no acute abnormalities. The pt was discharged to home.the pt,s condition upon discharge was fair,education was provided to the pt in reference to the final impression,discharge study results,treatment,prognosis and need for follow up . Differential Diagnosis Differential diagnosis: Likely other (As above) Medical Records Attestation: I reviewed the patient's medical records. Lab Data Attestation: I reviewed the patient's lab results. 02/22/24 07:46 02/22/24 07:46 Labs: Lab Results 02/22/24 02/22/24 Range/Units 07:15 07:46 WBC 7.8 (4.8-10.8) K/mm3 RBC 4.54 (4.20-5.40) M/mm3 Hgb 12.4 (12.0-15.0) g/dL Hct 38.3 (35.0-49.0) % MCV 84.4 (78.0-102.0) fL MCH 27.3 (27.0-31.0) pg MCHC 32.4 (32-36) g/dL RDW 13.5 (11.6-14.4) % Plt Count 296 (150-420) K/mm3 MPV 10.5 (9.2-11.8) fl Immature Gran % (Auto) 0.4 H (0.0-0.0) % Neut % (Auto) 63.1 (50.0-70.0) % Lymph % (Auto) 27.2 (18.0-42.0) % [place] % (Auto) 5.9 (2.0-11.0) % Eos % (Auto) 2.8 (1.0-6.0) % Baso % (Auto) 0.6 (0.0-1.0) % Lymph # (Auto) 2.11 (1.10-4.50) K/mm3 [place] # (Auto) 0.46 (0.10-0.90) K/mm3 Eos # (Auto) 0.22 (0.02-0.50) K/mm3 Baso # (Auto) 0.05 (0.00-0.10) K/mm3 Abs Immat Gran (auto) 0.03 H (0.00-0.00) K/mm3 Absolute Neuts (auto) 4.88 (1.70-7.20) K/mm3 Absolute Nucleated RBC 0.00 (0.00-0.00) K/mm3 Nucleated RBC % 0.0 (0-0.0) % Sodium 139 (136-145) mmol/L Potassium 4.3 (3.5-5.1) mmol/L Chloride 102 (98-108) mmol/L Carbon Dioxide 28 (21-32) mmol/L Anion Gap 9 (4-12) mmol/L BUN 9 (7-18) mg/dL Creatinine 0.81 (0.55-1.02) mg/dL Estim Creat Clear Calc 101 ml/min Estimated GFR > 60 (59 - ) Glucose 97 (70-99) mg/dL Calculated Osmolality 286 (285-295) mOsm/kg Calcium 9.4 (8.5-10.1) mg/dL Total Bilirubin 0.3 (0.00-1.00) mg/dL AST 30 (15-37) U/L ALT 32 (14-59) U/L Alkaline Phosphatase 94 (46-116) U/L Total Protein 8.3 H (6.4-8.2) g/dL Albumin 3.7 (3.4-5.0) g/dL Lipase 42 (16-77) U/L Urine Color Light yellow (Yellow) Urine Appearance Clear (Clear) Urine pH 6.0 (5.0-8.0) Ur Specific [place] 1.015 (1.010-1.020) Urine Protein Negative (Negative) Urine Glucose (UA) Negative (Negative) Urine Ketones Negative (Negative) Ur Blood (Man) 1+ H (Negative) Urine Nitrate Negative (Negative) Urine Bilirubin Negative (Negative) Urine Urobilinogen 0.2 (0.2-1.0) mg/dL Leukocyte Esterase Rfl Negative (Negative) JULISSA/UL Urine RBC 0-2 (0-2) /hpf Urine WBC None seen (0-3) /hpf Ur Squamous Epith Cells Few (Few) /hpf Urine Bacteria Trace (None) /hpf Imaging Data Radiologist's impression: Impressions Abdomen/Pelvis CT 02/22/24 08:18 IMPRESSION: 1. Tiny stones in both kidneys. No evidence of ureteric stones or hydronephrotic changes. 2. No evidence of appendicitis, diverticulitis or intestinal obstruction. 3. Cholelithiasis. 4. Fat infiltration of the liver. Critical Care Time Critical Care Time Critical Care Time: No Discharge Plan Discharge Clinical Impression: Acute flank pain Patient Disposition: Still a Patient Condition: Stable Instructions: Flank Pain (ED) Additional Instructions: Return if symptoms are worsening , call your family physician for appointment, take Tylenol, ibuprofen 600 every 6 hours as as needed for aches and pain, continue home medications. Prescriptions: New cyclobenzaprine 10 mg tablet 10 mg PO TID PRN (Reason: muscle spasm) Qty: 20 0RF No Action Linzess 72 mcg capsule 72 mcg PO DAILY PRN (Reason: constipation) 30 Days Qty: 30 2RF estradiol 1 mg Tablet 1 mg PO DAILY polyethylene glycol 3350 [Miralax] 17 gram/dose Powder 17 g PO DAILY nitrofurantoin monohyd/m-cryst [Macrobid] 100 mg Capsule 100 mg PO Q12HR 7 Days Qty: 14 0RF tamsulosin 0.4 mg capsule 0.4 mg PO DAILY Qty: 7 0RF ondansetron 4 mg tablet,disintegrating 4 mg PO Q6H PRN (Reason: nausea and vomiting) Qty: 10 0RF oxycodone-acetaminophen [Percocet] 5-325 mg tablet 1 tablet PO Q6H PRN (Reason: pain) Qty: 20 0RF hydrocodone-acetaminophen 5-325 mg tablet 1 tablet PO Q4H PRN (Reason: pain) Qty: 25 0RF Follow-up/Referrals: UNKNOWN,DOCTOR [Primary Care Provider] - Stand Alone Forms: Work/School Release IP
[2024-02-22 07:30] VITALS: BP 156/101; PULSE 78; RESP 17; O2SAT 98
--- NOTE | 2024-02-22 07:44 | PC.NURSE ---
lab at bedside
[2024-02-22 07:45] LABS: Add Urine Microscopic? YES; Appearance Urine Clear (Clear); Bilirubin Urine Negative (Negative); Blood Urine 1+ (Negative); Color Urine Light Yellow (Yellow); Glucose Urine UA Negative (Negative); Ketones Urine Negative (Negative); Leukocyte Esterase Ur Negative LEU/UL (Negative); Nitrate Urine Negative (Negative); Protein Urine Negative (Negative); Specific Grav Ur 1.015 (1.010-1.020); Urobilinogen Urine 0.2 mg/dL (0.2-1.0)
--- NOTE | 2024-02-22 07:45 | PC.NURSE ---
Patient taken down to CT
[2024-02-22 07:54] LABS: Basophils Absolute Auto 0.05 K/mm3 (0.00-0.10); Basophils Percent Auto 0.6 % (0.0-1.0); Eosinophils Absolute Auto 0.22 K/mm3 (0.02-0.50); Eosinophils Percent Auto 2.8 % (1.0-6.0); Hematocrit 38.3 % (35.0-49.0); Hemoglobin 12.4 g/dL (12.0-15.0); Immature Granulocyte Absolute 0.03 K/mm3 (0.00-0.00); Immature Granulocyte Percent A 0.4 % (0.0-0.0); Lymphocytes Absolute Auto 2.11 K/mm3 (1.10-4.50); Lymphocytes Percent Auto 27.2 % (18.0-42.0); Mean Corpuscular HGB Conc 32.4 g/dL (32-36); Mean Corpuscular Hemoglobin 27.3 pg (27.0-31.0); Mean Corpuscular Volume 84.4 fL (78.0-102.0); Mean Platelet Volume 10.5 fl (9.2-11.8); Monocytes Absolute Auto 0.46 K/mm3 (0.10-0.90); Monocytes Percent Auto 5.9 % (2.0-11.0); Neutrophils Absolute Auto 4.88 K/mm3 (1.70-7.20); Neutrophils Percent Auto 63.1 % (50.0-70.0); Platelet Count Result 296 K/mm3 (150-420); Red Blood Count 4.54 M/mm3 (4.20-5.40); Red Cell Distribution Width 13.5 % (11.6-14.4); White Blood Count 7.8 K/mm3 (4.8-10.8)
[2024-02-22 07:57] LABS: Bacteria Urine Trace /hpf; RBC Urine 0-2 /hpf (0-2); Squamous Epithelial Cell Urine Few /hpf (Few); WBC Urine None seen /hpf (0-3)
[2024-02-22 08:00] VITALS: BP 141/99; PULSE 81; RESP 17; O2SAT 95
--- NOTE | 2024-02-22 08:00 | PC.NURSE ---
patient states her daughter can pick her up and dedicated driver her home. patient safe for medication administration.
[2024-02-22] MEDS: HYDROcodone/acetaminophen (*CRX) 5-325 MG TABLET 1 TAB PO (08:05)
[2024-02-22 08:09] LABS: Alanine Aminotransferase 32 U/L (14-59); Albumin Level 3.7 g/dL (3.4-5.0); Alkaline Phosphatase 94 U/L (46-116); Anion Gap 9 mmol/L (4-12); Aspartate Amino Transferase 30 U/L (15-37); Bilirubin,Total 0.3 mg/dL (0.00-1.00); Blood Urea Nitrogen 9 mg/dL (7-18); Calcium 9.4 mg/dL (8.5-10.1); Carbon Dioxide 28 mmol/L (21-32); Chloride 102 mmol/L (98-108); Estimated CRCL calculation 101 ml/min; Estimated Glomerular Filt Rate > 60; Glucose 97 mg/dL (70-99); Lipase 42 U/L (16-77); Osmolality Calculated 286 mOsm/kg (285-295); Potassium 4.3 mmol/L (3.5-5.1); Sodium 139 mmol/L (136-145); Total Protein 8.3 g/dL (6.4-8.2)
[2024-02-22 08:30] VITALS: BP 139/95; PULSE 79; RESP 17; O2SAT 95
[2024-02-22 09:00] VITALS: BP 163/102; PULSE 81; RESP 17; O2SAT 96
[2024-02-22 09:14] VITALS: BP 152/90; PULSE 78; RESP 17; TEMP 37; O2SAT 95
== END 2024-02-22 09:14 | disposition home or self-care (01) ==
PROVIDERS: Emergency Provider Emergency Medicine
DX: R10.9 Unspecified abdominal pain (principal)
CPT/HCPCS: 36415; 74176; 80053; 81001; 83690; 85025; 99284; A9270

== ENCOUNTER 2024-07-12 10:40 | Outpatient (CLI) | payer OTHER, SELFPAY ==
[2024-07-12 11:14] LABS: Hematocrit 39.7 % (37.0-47.0); Hemoglobin 13.1 g/dL (12.0-15.0); Mean Corpuscular Hemoglobin 27.9 pg (26-34); Mean Corpuscular Volume 84.5 fl (80-100); Mean Platelet Volume 10.6 fl (7.4-10.4); Platelet Count Result 307 k/mm3 (150-375); Red Cell Distribution Width 13.6 % (11.5-14.5)
[2024-07-12 11:32] LABS: Alanine Aminotransferase 27 U/L (6-35); Albumin Level 4.9 g/dL (3.5-5.1); Alkaline Phosphatase 96 U/L (38-126); Anion Gap 11 mmol/L (4-12); Aspartate Amino Transferase 26 U/L (14-36); Bilirubin,Total 0.4 mg/dL (0.2-1.3); Blood Urea Nitrogen 10 mg/dL (7-17); Calcium 9.8 mg/dL (8.4-10.2); Carbon Dioxide 24 mmol/L (22-30); Chloride 103 mmol/L (98-107); Cholesterol 236 mg/dL (0-200); Estimated Glomerular Filt Rate > 60; Glucose 97 mg/dL (65-110); HDL Direct 40 mg/dL; Potassium 4.5 mmol/L (3.4-5.0); Sodium 138 mmol/L (137-145)
[2024-07-12 11:35] LABS: Rheumatoid Factor < 12.0 IU/ML (<12)
[2024-07-12 11:39] LABS: LDL Cholesterol Direct 128 mg/dL
[2024-07-12 12:02] LABS: Erythrocyte Sedimentation Rate 21 mm/hr (0-20)
[2024-07-12 12:16] LABS: Vitamin D 25 Hydroxy 24.3 ng/mL
[2024-07-12 12:36] LABS: Folic Acid 16.3 ng/mL (2.76->20)
--- OUTSIDE RECORDS SUMMARY | 2024-07-12 12:36 | XMS_ITS | CONTINUITY OF CARE DOCUMENT ---
Author Name jenn barajas Address Unknown Organization [facility] Address [address] [place] [address] Phone [phone] Care Team Providers Care Paver Installer Name Role Phone Parish Rose MD Unavailable [phone] RAYMOND DE LUNA MD Unavailable [phone] PROBLEMS Condition Status Date Provider Notes CHEST PAIN- active ? Parish Rose MD HTN ESSENTIAL active ? Parish Rose MD FAMILY HISTORY OF HEART DISEASE active ? Parish Rose MD ENCOUNTERS Date Type Provider Location Encounter Diag nosis - In-person encounter Office Visit Parish Rose MD [place] [facility] CHEST PAIN-HTN ESSENTIALFAMILY HISTORY OF HEART DISEASE VITAL SIGNS Date Observation Value Provider blood pressure, diastolic, left arm 97 mm [Hg] Joon Rutledge RN blood pressure, systolic, left arm 144 mm [Hg] Joon Rutledge RN blood pressure, diastolic, right arm 80 m m[Hg] Joon Rutledge RN blood pressure, systolic, right arm 126 m m[Hg] Joon Rutledge RN blood pressure, diastolic 97 mm[Hg] Tello Rutledge RN blood pressure, systolic 144 mm[Hg] Joon Rutledge RN pulse rate 98 /min Joon Rutledge RN oxygen saturation, oximetry 96 % Joon Rutledge RN respiratory rate E&M 16 /min Joon hardy RN Body Mass Index (Ratio) 33.41 kg/m2 Joon Rutledge RN weight E&M 197 [lb_av] Joon Rutledge RN height E&M 64.5 [in_i] Joon Rutledge RN ALLERGIES No Known Drug Allergies HISTORY OF MEDICATION USE No Known Medication SOCIAL HISTORY Date Observation Value Provider drug use no Joon Rutledge RN passive cigarette smoke exposure no Joon Rutledge RN caffeine use, average drinks per day yes Joon Rutledge RN alcohol use, average drinks per day socia l Joon Rutledge RN smoking status never smoker Joon Rutledge RN social history reviewed E&M reviewed Joon Rutledge RN MENTAL STATUS Date Observation Value Provider assessment of judgme nt and insight E&M Alert and oriented to time, place and person. Mood and affect are normal. Joon Rutledge RN INSURANCE PROVIDERS Payer name Policy type / Coverage type Giovanni red libertarian ID [employer] [facility] Other [id number] TREATMENT PLAN Date Name Arterial Duplex Uppe r Extremity Bilateral Renal Artery Duplex Complete Echo
--- OUTSIDE RECORDS SUMMARY | 2024-07-12 12:36 | XMS_ITS | Clinical Summary ---
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6 oz pure alcohol) socailly- 5 drinks last week-then none for a month Comments No Sex and Gender Information Value Date Recorded Sex Assigned at Not on file Legal Sex Female 7:18 PM CDT Gender Identity Not on file Sexual Orientation Not on file Last Filed Vital Signs Vital Sign Reading Time Taken Comments Blood Pressure 139/94 01/27/2024 1:20 PM CDT Pulse 78 01/27/2024 1:20 PM CDT Temperature 36.1 C (96.9 F) 01/27/2024 11:31 AM CDT Respiratory Rate 18 01/27/2024 1:20 PM CDT Oxygen Saturation 96% 01/27/2024 1:20 PM CDT Inhaled Oxygen Concentration - - Weight 120.7 kg (266 lb) 01/27/2024 11:31 AM CDT Height 160 cm (5' 3 ) 01/27/2024 11:31 AM CDT Body Mass Index 47.12 01/27/2024 11:31 AM CDT Plan of Treatment Health Maintenance Due Date Last Done Comments Annual Physical 02/08/1987 Hepatitis C 02/08/2002 DTaP, Tdap and Td Vaccines ( 1 - Tdap) 02/08/2003 Hepatitis B Vaccines (1 of 3 - 19+ 3-dose series) 02/08/2003 COVID-19 Vaccine (2023-2 5 season) 2023 Influenza Adult (#1) 2024 Mammogram Screening 2024 HPV Vaccines Aged Out No longer eligi ble based on patient's age to complete this topic Meningococcal B Vaccine Aged Out No l onger eligible based on patient's age to complete this topic Meningococcal Vaccine Aged Out No phu neeraj eligible based on patient's age to complete this topic Pneumococcal Vaccine: Pediat rics (0 to 5 Years) and At-Risk Patients (6 to 64 Years) Aged Out No longer eligible b ased on patient's age to complete this topic RSV Immunizations Under 20 Months Aged Out No longer eligible based on patient's age to complete this topic Care Teams Incident Manager Relationship Specialty Start Date End Date None, Provider, MD PCP - General UNKNOWN PHYSICIAN SPECIALTY 07/30/22
[2024-07-12 12:39] LABS: Iron 62 ug/dL (37-170)
[2024-07-12 13:22] LABS: Percent Iron Saturation 16 % (20-50)
[2024-07-12 14:13] LABS: Triglycerides 394 mg/dL (<150)
[2024-07-12 14:34] LABS: Hemoglobin A1C 5.9 % (<5.7)
[2024-07-12 14:52] LABS: Free T4 Free Thyroxine Reflex 0.86 ng/dL (0.78-2.19)
[2024-07-12 16:27] LABS: Total Triiodothyronine (T3) 1.99 NG/ML (0.97-1.69)
[2024-07-13 08:23] LABS: CRP, High Sensitivity 12.1 mg/L
[2024-07-14 14:29] LABS: Anti Cyclic Citrullinated Pept <16 UNITS
== END 2024-07-12 10:41 | disposition home or self-care (01) ==
LOC: ANHLAB 10:41
PROVIDERS: PCP Nurse Practitioner Family; Visit Provider Nurse Practitioner Family
DX: I10 Essential (primary) hypertension (principal); Z82.49 Family history of ischemic heart disease and other diseases of the circulatory system; R73.01 Impaired fasting glucose; E66.01 Morbid (severe) obesity due to excess calories; Z68.42 Body mass index [BMI] 45.0-49.9, adult; Z90.710 Acquired absence of both cervix and uterus; Z90.722 Acquired absence of ovaries, bilateral; Z90.79 Acquired absence of other genital organ(s); R68.82 Decreased libido; M25.50 Pain in unspecified joint; M25.40 Effusion, unspecified joint; M25.60 Stiffness of unspecified joint, not elsewhere classified; M67.442 Ganglion, left hand; R51.9 Headache, unspecified; Z76.89 Persons encountering health services in other specified circumstances; Z00.00 Encounter for general adult medical examination without abnormal findings; R53.82 Chronic fatigue, unspecified; E55.9 Vitamin D deficiency, unspecified; E53.8 Deficiency of other specified B group vitamins; E61.1 Iron deficiency
CPT/HCPCS: 36415; 80053; 80061; 82306; 82607; 82728; 82746; 83036; 83540; 83550; 84439; 84443; 84480; 85027; 85652; 86038; 86141; 86200; 86430

== ENCOUNTER 2024-07-18 10:39 | Outpatient (CLI) | payer OTHER, SELFPAY ==
--- NOTE | ~2024-07-18 | US_ITS ---
EXAMINATION: US soft tissue UE LT DATE: 07/18/2024 11:07 INDICATION: Mass at the dorsal base of the left third distal phalanx TECHNIQUE: Multiple grayscale and Doppler ultrasound images of the dorsal region of concern at the le ft third distal phalanx. COMPARISON: None FINDINGS: There is an 8 x 7 x 3 mm very hypoechoic region located in the subcutaneous tissues dorsal to the thi rd distal interphalangeal joint. This appears to abut the dorsal margin of the distal aspect of the e xtensor tendon. This appears to remain from the slightly more distal nailbed. No definitive internal vascular flow on color Doppler to suggest solid neoplasm. IMPRESSION: 1. 8 x 7 x 3 mm very hypoechoic lesion without definitive internal vascular flow on color Doppler loc ated in the subcutaneous tissues dorsal to the third distal interphalangeal joint and would favor a g anglion cyst over solid neoplasm. Reviewed, dictated and finalized at location B. IMPRESSION: 1. 8 x 7 x 3 mm very hypoechoic lesion without definitive internal vascular georgina w on color Doppler located in the subcutaneous tissues dorsal to the third dist al interphalangeal joint and would favor a ganglion cyst over solid neoplasm.
== END 2024-07-18 10:40 | disposition home or self-care (01) ==
LOC: MICIMG 10:40
PROVIDERS: PCP Nurse Practitioner Family; Visit Provider Plastic Surgery
DX: R22.32 Localized swelling, mass and lump, left upper limb (principal)
CPT/HCPCS: 76882

== ENCOUNTER 2024-09-02 00:29 | Day surgery (SDC) | payer OTHER, SELFPAY ==
[2024-08-25 08:05] VITALS: BMI 48.6
--- NOTE | 2024-08-25 08:14 | PC.NURSE ---
Report to the Outpatient Waiting Room, entrance under the green pavilion located off [address], at time _0915_ on date _[id number]_. Planned Procedure Time: _1115_. Time changes happen often and if your time is changed the preop area will call you the afternoon before. - You and your visitor will be asked to self-screen and do not enter if you have any COVID symptoms. Please call surgeon if you need to reschedule. - A mask is optional within the hospital at this time. May have clear liquids (water, carbonated beverages, clear teas, apple juice) until 3:15am prior to surgery with a maximum of 20 ounces. Nothing to drink after 3:15am. - No food from midnight until time of surgery and no smoking, or chewing tobacco (or any form of nicotine). No chewing gum, candy or mints. Take only the following medications with a SIP of water on the morning of surgery: __None___ DO NOT STOP ANY OF YOUR OTHER PRESCRIPTION MEDICATIONS PRIOR TO SURGERY EXCEPT THE FOLLOWING Hold all vitamins and supplements for 3 days per anesthesiologist. Medications to discontinue per physician Date to take last dose Please no make-up, nail upper sorbian, hairspray, perfume, deodorant, or body powder the day of surgery. No jewelry (including any body piercings) or valuables the day of surgery, leave them at home. Please take a shower or bath the night before, or the morning of, surgery with an antibacterial soap. Wear comfortable, loose fitting clothing. - Jewelry must be removed prior to entering the operating room. Rings and piercings that are not removed may be cut off. - The hospital will not accept responsibility for valuables. - Please leave all valuables, including medications, at home the day of surgery. If you are going home after surgery, a licensed sales driver must drive you home. - NO public transportation without another adult if you receive anesthesia. - We recommend that an adult stay with you for 24 hours following discharge. - We also recommend that you do not drive, make important decision, drink alcoholic beverages, or take any drugs that were not prescribed by your health care provider for at least 24 hours after your discharge time. Follow any additional instructions given to you from your surgeon. Telephone instructions given to _Amber___and asked if any additional questions and then verbalized understanding. Patient advised to call surgeon office or pre surgery nurse liaison [phone] if any additional questions.
--- OUTSIDE RECORDS SUMMARY | 2024-09-02 00:34 | XMS_ITS | Clinical Summary ---
Author Organization [facility] Address [address] [place] [address] Care Team Providers Care Electric Truck Driver Name Role Phone None, Provider MD Primary [...] 02/08/2003 COVID-19 Vaccine (2023-2 5 season) 2023 Mammogram Screening 2024 HPV Vaccines Aged Out [...] 5 Years) and At-Risk Patients (6 to 49 Years) Aged Out No longer eligible b ased on patient's age to complete this topic RSV Immunizations Under 20 Months Aged Out No longer eligible based on patient's age to complete this topic Care Teams Electric Truck Driver Relationship Specialty Start Date End Date None, Provider, MD PCP - General UNKNOWN PHYSICIAN SPECIALTY 07/30/22
--- NOTE | 2024-09-02 06:45 | PM.HPGS ---
History of Present Illness History of Present Illness Chief complaint: Left Middle Finger Mass Narrative: Patient seen and examined in pre-operative holding area. No interval change in medical history or symptoms. Patient recalls previous discussion of benefits and alternatives to procedure. Continues to desire to proceed with left middle finger mass excision. Reviewed procedure, post-op expectations and risks including but not limited to bleeding, infection, injury to tendon/nerve/vessel, decreased hand function, stiffness, RSD, no change or worsening of symptoms, recurrence. I discussed the possible use of assistants and their participation in the case. Patient stated understanding and signed the consent form wishing to proceed. Review of Systems Review of Systems: All systems reviewed & are unremarkable except as noted in HPI and below PMFSH Past Medical History Medical History (Updated 07/26/24 @ 11:37 by Modesta Paiz APRN) Hypertension Diabetes Encounter to establish care Post-op pain Urinary tract infection Obesity Endometriosis Constipation GERD (gastroesophageal reflux disease) Surgical History Surgical History (Updated 07/26/24 @ 11:04 by Leanne Phelps MA) Hx of hysterectomy Post-operative state History of tonsillectomy History of right oophorectomy H/O laparoscopy Family History Family History (Updated 07/26/24 @ 11:06 by Leanne Phelps MA) Mother Hypertension Heart problem Father Hypertension Diabetes mellitus Sibling Diabetes mellitus Heart problem Hypertension Grandparent Diabetes mellitus Heart problem Hypertension Social History Social History Smoking status: Never smoker Alcohol intake: never Alcohol use details: EVERY OTHER MONTH Substance use: never Substance use type: does not use Living arrangements: with family Spiritual care concerns: No Meds Home Medications and Allergies Home Medications Medication Instructions Recorded Confirmed Type cholecalciferol (vitamin D3) 25 25 mcg PO DAILY #90 caps 07/19/24 08/25/24 Rx mcg (1,000 unit) capsule aspirin 81 mg chewable tablet 81 mg PO DAILY 07/26/24 08/25/24 History estradiol 1 mg tablet 1 mg PO DAILY #90 tabs 07/26/24 08/25/24 Rx meloxicam 7.5 mg tablet 7.5 mg PO DAILY #90 tabs 08/15/24 08/25/24 Rx amlodipine 5 mg-benazepril 10 mg 1 cap PO DAILY #90 caps 08/29/24 Rx capsule Allergies Allergy/AdvReac Type Severity Reaction Status Date / Time No Known Allergies Allergy Unknown Verified 08/25/24 08:03 Exam Narrative: unchanged Assessment and Plan Assessment and plan (1) Localized swelling, mass and lump, left upper limb: Code(s): R22.32 - Localized swelling, mass and lump, left upper limb Status: Acute Assessment and Plan: cont as above
--- NOTE | 2024-09-02 06:46 | P.OP_ITS ---
Procedure Note - Detailed Date of Procedure 09/02/24 Pre-op Diagnosis Left Middle Finger Mass Post-op Diagnosis Same (left middle finger masses) Procedure Performed left middle finger mass excision x2 and adjacent tissue transfer Surgeon Perla Bean MD Mail Distributor bhargavi white pa-c Anesthesia MAC Description of Procedure INFORMED CONSENT: The patient was seen and examined and marked in the pre-op area. The patient signed the consent form. PROCEDURE IN DETAIL:The patient taken back to OR on the stretcher in supine position. Time out performed with anesthesia, surgeon and staff agreeing on patient's name site and surgery to be performed SCDs were placed on the lower extremities and inflated. A tourniquet was placed on {left} upper extremity and antibiotics given IV After anesthesia administered sedation I injected {4}cc 1%lido and 0.5% marcaine plain for digtal block in the palm The {left upper extremity} was prepped and draped in sterile fashion the {left upper extremity} was exsanguinated with Esmarch bandage proximal to the mass and tourniquet inflated to 250mmHg First I proceeded with taking my attention to the left middle finger dorsal mass where I made an elliptical incision around the thinned, stretched, affected skin over the mass through skin and dermis a 15 blade scalpel. This incision was carried proximally and distally to allow elevation of skin flaps. I proceeded with circumferential dissection of this mass with Littler scissors and 15 blade scalpel noting this thickened fibrous mass appeared to be coming off the extensor tendon. The extensor tendon was protected throughout the procedure as I proceeded with resection of this mass. The mass measured 1.2 cm No clear extension of this mass radially, ulnarly or extending toward this volar mass was appreciated. Irrigated with normal saline after resection of this mass. Even with wide undermining I was unable to achieve primary closure of this incision given the extent of affected skin resection. I proceeded with extending my incision in a semi circular fashion proximally and created a rotation advancement flap in the subcutaneous plane. After irrigation this flap was advanced and the incision was closed with 4-0 chromic suture. Next I took my attention to the volar mass which appeared to be a distinct and separate mass at this time. I made a Kevyn incision over the mass on the volar aspect of the left middle finger through skin and dermis with a 15 blade scalpel. Littler scissors were used to spread through subcutaneous tissue and through toney's fascia. A branch of the radial digital nerve was identified and retracted. A 4 mm firm spherical mass was then dissected from this deep tissue around the neurovascular bundle. I irrigated with normal saline. This incision was closed with 4-0 chromic. A dressing of xeroform, 4x4, and tube gauze was applied after the tourniquet was let down noting the hand was warm and well perfused. The patient was then awaken from anesthesia and transferred to the recovery room in stable condition. Complications - none EBL- 0cc Disposition - home in stable conditions bhargavi white pa-c was essential for positioning, retraction, closure and dressing placement [facility] [place] - Charge Forward: Surgery Billing ([id number], [id number],XS. same for bhargavi adding modifier )
[2024-09-02 09:00] VITALS: BP 139/89; PULSE 78; RESP 18; TEMP 36.4; O2SAT 97
[2024-09-02] MEDS: LACTATED RINGERS 1,000 ML 30 ML IV CONT (09:00)
[2024-09-02 09:38] VITALS: BMI 48.4
--- NOTE | 2024-09-02 10:13 | P.PNAN_ITS ---
Anes - Initial Pre Proc Eval Procedure: Operation Date: 09/02/24 10:30 Proposed Procedures p Left Middle Finger Mass Excision - Perla Bean MD Date/Time: 09/02/24 10:13 Surgeon: Perla Bean MD Pre Op Diagnosis: Left Middle Finger Mass Patient Data Age: 39 Gender: F Height: 1.6 m Weight: 124 kg Last Vital Signs Temp 36.4 C L 09/02/24 09:00 Pulse 78 09/02/24 09:00 Resp 18 09/02/24 09:00 BP 139/89 09/02/24 09:00 Pulse Ox 97 09/02/24 09:00 O2 Del Method Room Air 09/02/24 09:00 Allergies Allergy/AdvReac Type Severity Reaction Status Date / Time No Known Allergies Allergy Unknown Verified 09/02/24 09:36 Home Medications Medication Instructions Recorded Confirmed Type cholecalciferol (vitamin D3) 25 25 mcg PO DAILY #90 caps 07/19/24 08/25/24 Rx mcg (1,000 unit) capsule aspirin 81 mg chewable tablet 81 mg PO DAILY 07/26/24 08/25/24 History estradiol 1 mg tablet 1 mg PO DAILY #90 tabs 07/26/24 08/25/24 Rx meloxicam 7.5 mg tablet 7.5 mg PO DAILY #90 tabs 08/15/24 08/25/24 Rx amlodipine 5 mg-benazepril 10 mg 1 cap PO DAILY #90 caps 08/29/24 Rx capsule tramadol 50 mg tablet 50 mg PO Q6H PRN pain #12 tabs 09/02/24 Rx Patient hx anesthesia problems: post op nausea/vomiting Family hx anesthesia problems: none Results Review: All pre-operative results and documents have been reviewed as part of the pre- operative evaluation. [facility] Past Medical History Medical History Hypertension Diabetes Encounter to establish care Post-op pain Urinary tract infection Obesity Endometriosis Constipation GERD (gastroesophageal reflux disease) Surgical History Surgical History Hx of hysterectomy Post-operative state History of tonsillectomy History of right oophorectomy H/O laparoscopy Family History Family History Mother Hypertension Heart problem Father Hypertension Diabetes mellitus Sibling Diabetes mellitus Heart problem Hypertension Grandparent Diabetes mellitus Heart problem Hypertension Social History Social History Smoking status: Never smoker Alcohol intake: never Alcohol use details: EVERY OTHER MONTH Substance use: never Substance use type: does not use Living arrangements: with family Spiritual care concerns: No Anes - Eval Final PreProcedure Day of Procedure 09/02/24 10:13 Patient weight: morbidly obese Heart: regular rate and rhythm Lungs: decreased breath sounds Airway: Mallampati scale class III Neurological: alert and oriented Last oral intake: >/= 8 hours ASA classification: III Emergent: no Anesthetic plan: proceed Anesthesia type and monitoring: general GIVS and standard monitoring Results Review: All pre-operative results and documents have been reviewed as part of the pre- operative evaluation. Informed Consent: The patient's anesthetic plan and its attendant risks and benefits were discussed with the patient/family/POA. Questions were solicited and answers provided to the satisfaction of the patient/family/POA.
[2024-09-02] MEDS: ceFAZolin 3 GM/D5W 100 ML 100 ML IVPB (10:30)
[2024-09-02 10:58] VITALS: BP 129/78; PULSE 83; RESP 14; O2SAT 99
[2024-09-02 11:28] VITALS: BP 137/85; PULSE 76
== END 2024-09-02 11:41 | disposition home or self-care (01) ==
PROVIDERS: PCP Nurse Practitioner Family; Visit Provider Plastic Surgery
PROC: (CPT 26116; principal; 2024-09-02 10:30)
DX: D48.19 Other specified neoplasm of uncertain behavior of connective and other soft tissue (principal); I10 Essential (primary) hypertension; E11.9 Type 2 diabetes mellitus without complications; K21.9 Gastro-esophageal reflux disease without esophagitis; N80.9 Endometriosis, unspecified; E66.01 Morbid (severe) obesity due to excess calories; Z68.42 Body mass index [BMI] 45.0-49.9, adult; Z79.82 Long term (current) use of aspirin; Z79.891 Long term (current) use of opiate analgesic; Z98.890 Other specified postprocedural states; Z82.49 Family history of ischemic heart disease and other diseases of the circulatory system
CPT/HCPCS: 26116; 26160; 14040; 88304; A9270; J0690; J2003; J2704; J3010; J7120

== ENCOUNTER 2025-02-26 12:35 | Emergency (ER) | payer OTHER, SELFPAY ==
--- NOTE | 2025-02-26 12:36 | ED_ITS ---
HPI - Animal Bite General Chief Complaint: Animal Bite Stated Complaint: dog bite Time Seen by Provider: 02/26/25 12:36 Source: patient Mode of arrival: ambulatory Limitations: no limitations History of Present Illness HPI narrative: Patient is a 40-year-old female with a left hand thumb dog bite yesterday by her own dog. Two of her dogs were fighting over a snack and she tried to break up the fight and got bit. This was a provoked event between 2 dogs that she got in the middle of the event. No concerns for rabies. Animals are not up-to-date on their shots. complaint: animal bite Onset (ago): day(s) (2) Animal: dog Description of animal: household pet Mechanism: bite Location - Extremities: Left: hand (Thumb) Pain description: dull Severity scale (1-10): 1 Context: animals fighting and provoked Associated symptoms: none Treatments prior to arrival: irrigation (Cleaned wound) Related Data Patient tetanus UTD: No Home Medications ?Medication ?Instructions ?Recorded ?Confirmed ?Last Taken ?Type aspirin 81 mg chewable tablet 81 mg PO DAILY 07/26/24 01/11/25 Unknown History Allergies Allergy/AdvReac Type Severity Reaction Status Date / Time No Known Allergies Allergy Unknown Verified 01/11/25 14:11 Review of Systems Review of Systems: All systems reviewed & are unremarkable except as noted in HPI and below Constitutional: Constitutional: Reports no additional constitutional complaints Eyes: Eyes: Reports no additional eye complaints ENT: Reports system reviewed and no additional complaints, except as documented Cardiovascular: Cardiovascular: Reports no additional cardiovascular complaints Respiratory: Respiratory: Reports no additional respiratory complaints Gastrointestinal: Gastrointestinal: Reports no additional gastrointestinal complaints Genitourinary: Genitourinary: Reports no additional female genitourinary complaints Musculoskeletal: Musculoskeletal: Reports no additional musculoskeletal complaints Integumentary/Breasts: Skin/Breast: Reports system reviewed and no additional complaints, except as docu Neurologic: Reports system reviewed and no additional complaints, except as documented Psychiatric: Psychiatric: Reports no additional psychiatric complaints Endocrine: Endocrine: Reports no additional endocrine complaints Hematologic/Lymphatic: Hematologic/Lymphatic: Reports no additional hematologic/lymphatic complaints Allergic/Immunologic: Allergic/Immunologic: Reports no additional aller gic/immunologic complaints PMFSH Past Medical History Medical History Surgical menopause on hormone replacement therapy Localized swelling, mass and lump, left upper limb Hypertension Diabetes Encounter to establish care Post-op pain Urinary tract infection Obesity Endometriosis Constipation GERD (gastroesophageal reflux disease) Surgical History Surgical History Hx of hysterectomy Post-operative state History of tonsillectomy History of right oophorectomy H/O laparoscopy Family History Family History Mother Hypertension Heart problem Father Hypertension Diabetes mellitus Sibling Diabetes mellitus Heart problem Hypertension Grandparent Diabetes mellitus Heart problem Hypertension Social History Social History Alcohol intake: never Alcohol use details: EVERY OTHER MONTH Substance use: never Substance use type: does not use Living arrangements: with family Spiritual care concerns: No Exam Const: General: healthy appearing Nutritional Appearance: well nourished Orientation/consciousness: patient oriented x3 HENMT: Head: normal to inspection Ears: external ears normal Face/Nose/Sinus: Normal external nose present Eyes: Conjunctivae: conjunctivae normal Pupils: Equal, round and reactive pupils present EOM: EOMs intact bilaterally Neck: Neck: normal visual inspection Chest: Chest palpation & inspection: normal inspection of the chest Resp: Effort & Inspection: normal respiratory effort and not labored Auscultation: clear to auscultation bilaterally and no crackles Cardio: Rate: regular rate Rhythm: regular rhythm Heart sounds: no murmurs GI: Inspection: non-distended GI Palp: Yes Soft to palpation and No Tenderness to palpation present (GI) Auscultation: normal bowel sounds : General: Yes bladder normal to palpation Back/Spine/Pelvis: Back: no CVA tenderness Skin: General skin exam: normal color Rashes: no rashes Wounds: wound noted Other: Left hand thumb extensor surface has 3-4 multiple superficial abrasions and 1 small puncture wound without bleeding or signs of infection at this time; no abscess Neuro: General: patient oriented x3, moves all extremities and no meningeal signs Extrem: General: normal to inspection Psych: Mental Status: mental status grossly normal Affect: normal affect Attitude: cooperative Course Vital Signs Vital signs: Vital Signs Temperature 36.6 C 02/26/25 12:41 Pulse Rate 77 02/26/25 12:41 Respiratory Rate 12 11/09/25 12:41 Blood Pressure 175/108 H 02/26/25 12:41 Pulse Oximetry 99 02/26/25 12:41 Oxygen Delivery Room Air 02/26/25 12:41 Temperature 36.6 C 02/26/25 12:41 Pulse Rate 77 02/26/25 12:41 Respiratory Rate 12 02/26/25 12:41 Blood Pressure 175/108 H 02/26/25 12:41 Pulse Oximetry 99 02/26/25 12:41 Oxygen Delivery Room Air 02/26/25 12:41 MDM - Animal Bite MDM Narrative Medical decision making narrative: Patient is a 40-year-old female with a left hand thumb dog bite yesterday by her own animal with a provoked event. Tetanus booster. Augmentin. No concerns for rabies. Discharge Plan Discharge Clinical Impression: Dog bite, hand Qualifiers: Encounter type: initial encounter Laterality: left Qualified Code(s): S61.452A - Open bite of left hand, initial encounter Patient Disposition: Home Condition: Stable Instructions: Antibiotic Form, Animal Bite (ED) Patient Language: Montserratian Prescriptions: New amoxicillin-pot clavulanate 875-125 mg tablet 1 tablet PO BID 10 Days Qty: 20 0RF No Action amlodipine-benazepril 5-20 mg capsule 1 cap PO DAILY Qty: 90 1RF meloxicam 15 mg tablet 15 mg PO DAILY Qty: 90 1RF fluoxetine 20 mg capsule 20 mg PO DAILY Qty: 90 0RF furosemide 20 mg tablet 20 mg PO QAM PRN (Reason: ankle swelling) Qty: 90 0RF aspirin 81 mg tablet,chewable 81 mg PO DAILY estradiol 1 mg tablet 1 mg PO DAILY Qty: 90 1RF cholecalciferol (vitamin D3) 25 mcg (1,000 unit) capsule 25 mcg PO DAILY Qty: 90 1RF Zepbound 5 mg/0.5 mL pen injector 5 mg subcut WEEKLY Qty: 2 0RF Follow-up/Referrals: Sowmya Lundberg APRN [Primary Care Provider, Internal Medicine] Time of Disposition: 12:43
--- OUTSIDE RECORDS SUMMARY | 2025-02-26 12:37 | XMS_ITS | Clinical Summary ---
Author Organization [facility] Address [address] [place] [id number] Care Team Providers Care Professional Wrestler Name Role Phone None, Provider MD Primary [...] 11:31 AM CDT Height 160 cm (5' 3) 01/27/2024 11:31 AM CDT Body Mass Index 47.12 01/27/2024 11:31 AM CDT Plan of Treatment Health Maintenance Due Date Last Done Comments Annual Physical 02/08/1987 Hepatitis C 02/08/2002 DTaP, Tdap and Td Vaccines ( 1 - Tdap) 02/08/2003 Hepatitis B Vaccines (1 of 3 - 19+ 3-dose series) 02/08/2003 HPV Vaccines (1 - 3-dose SCD M series) 02/08/2011 Mammogram Screening 2024 COVID-19 Vaccine (1 - 2024-2 6 season) 2024 Influenza Adult (#1) 2025 Hepatitis A Vaccines Aged Out No long er eligible based on patient's age to complete [...] age to complete this topic Care Teams Professional Wrestler Relationship Specialty Start Date End Date None, Provider, MD PCP - General UNKNOWN PHYSICIAN SPECIALTY 07/30/22
--- OUTSIDE RECORDS SUMMARY | 2025-02-26 12:37 | XMS_ITS | Data Portability ---
Author Organization [facility] [place] Address [address] [place] [address] Assessment Encounter Date Assessment Date Assessment LastModified by Organization Details LastModified Time 06/19/2021 06/19/2021 This patient is a 36-year-old female presents for postop follow-up. She is 1 week postop total laparoscopic hysterectomy bilateral salpingectomy. She is recovering normally. She does have some persistent postoperative pain at. Appears to be normal. She is getting around well and drove herself here today. I did not recommend that she do that. Her incisions are Clean dry and intact. She will follow-up in 2 weeks. [email or web address] Not available 06/19/2021 16:06:02 Plan of Treatment Reminders Order Date Submit Date Provider Last Modified By Organization Details Last Modified Time Details Appointments None recorded. Lab None recorded. Referral None recorded. Procedures None recorded. Surgeries total hysterectom y, laparoscopi c, with bilateral salpingecto my (SURG) 2021 022 [email or web address] [facility], [address], [place], [address], 09:50:35 Imaging None recorded. Medication Orders None recorded. Patient TargetsNo targets recorded. Patient InstructionsNo instructions recorded. Reason for Referral None Reported. Results Created Date Observation Date Name Description Value Unit Range Abnormal Flag Note LastModifiedBy Organization Detail LastModifiedTime 06/01/1906/01/2021 pregn jose test, urine HCG negati ve Not Available [facility] [address], [place], [address], 06/01/2021 12:15:27 06/03/19 22 06/03/2021 [facility] PATHO LOG[facility] surgical pathology SEE RESULT S BELOW CASE REPOR T: Surgi valerie Patho logy Repor t Case: [id number] Autho kayce swartz Provi oliva: Emily Sarabia MD Colle cted: 06/03 0958 Order ing Locat ion: [place] [facility] Recei rehana: 06/04 0056 Patho logis t: Breana Torres MD Speci men: Cervi x, cervi valerie lesio n FINAL DIAGN OSIS: Cervi x, polyp ectom y: -Adrien gn cervi valerie polyp . -No dyspl moe. Elect larry rivas by Breana Torres MD on 2021 at 1:01 PM ----- ----- ----- ----- ----- ----- ----- ----- ----- ----- ----- ----- ----- ----- ----- ----- ----- ---- CLINI VALERIE INFOR MATIO N: not provi ded MICRO SCOPI C DESCR IPTIO N: A micro scopi c exami natio n was perfo rmed. GROSS DESCR IPTIO N: A. Cervi x. The speci men is label ed with the patie nt's name, demog yohannes mora and cerv ical lesio n. Recei rehana in forma yuri is a 0.5 cm piece of white -browne tissu e. The entir e speci men is submi tted in one casse tte. Gross ed by Erica bazan Not Available [facility] (Lab) [address], [place], [address], 06/04/2021 14:03:51 05/20/19 22 05/21/2021 US, trans vagin al No observ ation record ed. [email or web address] [facility] [address], [place], [address], 05/21/2021 09:24:56 05/20/19 22 05/20/2021 US, trans vagin al No observ ation record ed. MORGAN Thomas [address], [place], [address], 05/21/2021 21:48:10 Result Notes None recorded. Procedures Surgical History Date Name Laterality Status Provider Name and Address Organization Details Recorded Time 06/12/19 22 laparoscopic total hysterectomy completed [facility] 06/19/2021 15:27:10 03/18/20 21 Date of Last Pap Smear completed [facility] 06/01/2021 11:41:19 Endometrial Biopsy completed [facility] 03/18/2021 12:13:31 Oophorectomy completed [facility] 03/18/2021 12:28:31 Imaging Results None recorded. Procedure Notes None recorded. Medical Equipment None Reported. Medications Name Sig Start Date Stop Date Status Note LastModified by Organization Details LastModified Time hydrocodone 5 mg-acetaminophe n 325 mg tablet active Not Available Not Availa ble Not Available sulfamethoxazol e 800 mg-trimethoprim 160 mg tablet active Not Available Not Availabl e Not Available estradiol 1 mg tablet Take 1 tablet every day by oral route. active Not Available Not Available No t Available phenazopyridine 100 mg tablet active Not Available Not Availabl e Not Available omeprazole 20 mg capsule,delayed release active Not Available Not Available Not Available nitrofurantoin monohydrate/mac rocrystals 100 mg capsule TAKE 1 CAPSULE BY MOUTH EVERY 12 HOURS active Not Available Not Available No t Available Linzess 72 mcg capsule active Not Available Not Available Not Available Vitals Date Recorded Body height Body mass index (BMI) Body weight Systolic And Diastolic Provider Name and Address Organization Details Last Updated DateTime 05/21/2021 160.02 cm 40 kg/m2 797105.88 g 158/95 mm[Hg] [facility] 05/21/2021 09:49:18 Date Recorded Body height Body mass index (BMI) Body weight Systolic And Diastolic Provider Name and Address Organization Details Last Updated DateTime 06/01/2021 160.02 cm 40 kg/m2 607671.88 g 160/101 mm[Hg] [facility] 06/01/2021 11:20:00 Date Recorded Body height Body mass index (BMI) Body weight Systolic And Diastolic Systolic And Diastolic Provider Name and Address Organization Details Last Updated DateTime 06/19/2021 160.02 cm 39.7 kg/m2 204580.6 9 g 168/94 mm[Hg] 147/94 mm[Hg] [facility] 15:23:29 Date Recorded Body height Body mass index (BMI) Body weight Systolic And Diastolic Provider Name and Address Organization Details Last Updated DateTime 07/03/2021 160.02 cm 39.5 kg/m2 895465.1 g 168/100 mm[Hg] [facility] 07/03/2021 17:51:38 Social History Question Answer Notes LastModified by Organizat ion Details LastModified Time Do You Have An Advance Directive? No Information n ot available 03/18/2021 Are You Blind Or Do You Have Difficulty Seeing? No Information n ot available 03/18/2021 What Is Your Level Of Caffeine Consumption? Occasional Information not available 03/18/2021 In The 14 Days Before Symptom Onset, Have You Had Close Contact With A Laboratory-confirm ed COVID-19 While That Case Was Ill? No Information n ot available 03/18/2021 In The 14 Days Before Symptom Onset, Have You Had Close Contact With A Person Who Is Under Investigation For COVID-19 While That Person Was Ill? No Information not available 03/18/2021 Have You Been To An Area Known To Be High Risk For COVID-19? No Information not available 03/18/2021 Are You Deaf Or Do You Have Serious Difficulty Hearing? No Information not available 03/18/2021 What Is The Highest Grade Or Level Of School You Have Completed Or The Highest Degree You Have Received? KS30105-9 Information not available 03/18/2021 Are There Any Guns Present In Your Home? No Information not available 03/18/2021 Do You Use Protection During Sex? No Information not available 03/18/2021 Do You Use Your Seat Belt Or Car Seat Routinely? Yes Information not available 03/18/2021 Do You Have Smoke And Carbon Monoxide Detectors In Your Home? Yes Information not available 03/18/2021 How Much Tobacco Do You Smoke? No Information not available 03/18/2021 Do You Use Sunscreen Routinely? Yes Information not available 03/18/2021 Have You Used IV Drugs? No Information not available 03/18/2021 Sex: Unknown Functional Status Question Answer Note LastModified by Organizat ion Details LastModified Time Do you use any illicit or recreational drugs? No Information not available 03/18/2021 What is your level of alcohol consumption? Occasional Information not available 03/18/2021 Are you able to walk independently without assistance or assistive devices? 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 Occasional Information not available 03/18/2021 Mental Status Question Answer Note LastModified by Organization D etails LastModified Time Do you feel stressed (tense, restless, nervous, or anxious, or unable to sleep at night)? [id number] Information not available 03/18/2021 Family History Relationship Description Onset Age of this Age Resolved Age Notes LastModified by Organization Details LastModified Time Maternal Grandmother Heart disease Not available 2020 12:13:19 Brother Heart disease Not available 2020 12:13:19 Medical History Condition Response History of abnormal pap Y Endometriosis Y Gynecological History Statement/Question Response Abnormal Pap Y On BCP's at Conception? N N Was last menstrual period normal Y STIs/STDs N HPV Vaccine N Duration of Flow (days) 5 Current Control Method Hysterectom y Age at First Child 20 Date of control 1985 Frequency of Cycle (Q days) 1 Sexually Active? Y None Age of first menstrual cycle 10 Date of Last Pap Smear 03/18/2021 Sexual Problems? N Desired Control Method Condoms N Obstetrics History GPAL:G 0 P 0 0 0 0 Past Encounters Encounter ID Performer Location Encounter Start Date Encounter Closed Date Diagnosis/Indication Diagnosis SNOMED-CT Code Diagnosis ICD10 Code Diagnosis IMO Codes Diagnosis Note [id number] Jay Sarabia MD [facility] [address] [address] 03/18/2021 11:13:04 03/18/2021 13:05:53 Urinary symptoms 675257685 R39.9 Menorrhagia 595025563 N9 2.0 Pain in pelvis 00286368 R10.2 this patient is a 36-year-ol d female history of endometrio sis who presents for pelvic pain. She has a history of a large endometrio ma. Patient has pelvic pain. She has pain leading up to her menses and at the time of her menses. The pain is severe. She also has some urinary urgency. She has blood in her urine. She will be treated for urinary tract infection. Patient also has a lesion on her cervix. She return for a biopsy of lesion on her cervix. Looks like a condyloma. Patient has severe menorrhagi a. She has accidents, getting blood on her bedding clothing. Pelvic ultrasound will perform for the menorrhagi a and pelvic pain. She will return after that for discussion of treatment options. Patient also mentioned a breast problem. I asked her to make a separate appointmen t for breast concern. Spent over 45 minutes on this case. She Endometrio sis of pelvis 00745890 N80.3 Abnormal c ervical Papanicolaou smear 279817370 R87.619 Constipation 76371562 K5 9.00 GI consult Lesion of cervix 3196048 01 N88.9 Urinary tr act infectious disease 66550235 N39.0 [id number] Jay Sarabia MD [place] [address] [address] 05/20/2021 16:10:29 05/20/2021 17:18:20 Pain in pelvis 12051861 R10.2 N92.0 this patient is a 36-year-ol d female history of endometrio sis who presents for pelvic pain. She has a history of a large endometrio ma. Patient has pelvic pain. She has pain leading up to her menses and at the time of her menses. The pain is severe. She also has some urinary urgency. She has blood in her urine. She will be treated for urinary tract infection. Patient also has a lesion on her cervix. She return for a biopsy of lesion on her cervix. Looks like a condyloma. Patient has severe menorrhagi a. She has accidents, getting blood on her bedding clothing. Pelvic ultrasound will perform for the menorrhagi a and pelvic pain. She will return after that for discussion of treatment options. Patient also mentioned a breast problem. I asked her to make a separate appointmen t for breast concern. Spent over 45 minutes on this case. She [id number] Jay Sarabia MD [facility] [address] [address] 05/21/2021 09:05:40 05/21/2021 10:37:53 Dysplasia of cervix 16731503 N87.9 Menorrhagia 707452645 N9 2.0 Dysmenorrhea 980237181 N 94.6 Pain in pelvis 62528361 R10.2 N92.0 Dyspareunia 80319532 N94 .10 Endometrio sis of pelvis 95470608 N80.3 this patient is a 36-year-ol d female with severe pelvic pain and history of severe endometrio sis. The patient also reports severe menorrhagi a and dysmenorrh ea. Her menorrhagi a and dysmenorrh ea or debilitati ng. She misses work several days at the time of her menses. After her menses she has a long episode vaginitis. Every time she has her menses. The patient has had a longstandi ng problem with HPV infection. Patient has a history of endometrio sis. She had a surgery were a large endometrio ma was removed and multiple endometrio sis implants were removed. She had some relief but then failed adjunct treatments using OCPs after the surgery and her endometrio sis pain returned. We had a lengthy discussion today. We returned face-to-fa ce for more than 25 minutes. More than 75% was counseling . Talked about treatment options. The patient would like definitive surgical treatment. This is very appropriat e given the multitude of problems that she has that would be resolved with hysterecto my. We talked about keeping and surgically removing ovaries at the time of the surgery. Talked about HPV and the surgery. We agreed to proceed with total laparoscop ic hysterecto my and bilateral salpingect giovanni. She will return for colposcopi c examinatio n. She will await scheduling of the surgery. She will return for the informed consent process. [id number] Jay Sarabia MD [facility] [address],[place] [address] 06/01/2021 10:28:59 06/01/2021 12:18:24 Menorrhagia 212428798 N92.0 this patient is a 36-year-ol d female with severe menorrhagi a. We have agreed to perform total laparoscop ic hysterecto my bilateral salpingect giovanni. She understand s the risks, benefits, and alternativ es. She has completed the informed consent process and is ready to proceed. Lesion of cervix 1970661 01 N88.9 cervical biopsy was performed With Tischler forceps. She tolerated it well. [id number] Jay Sarabia MD [facility] [address] [address] 06/17/2021 09:42:15 06/17/2021 09:43:53 [id number] Jay Sarabia MD [facility] [address],[place] [address] 06/19/2021 15:14:07 06/19/2021 16:09:21 Postoperative care 910141846 Z48.89 [id number] Jay Sarabia MD [place] [address],[place] [address] 07/03/2021 17:05:11 07/03/2021 18:35:23 Postoperative pain 104683464 G89.18 this patient is a 36-year-ol d female presents for postop follow-up. She is 3 weeks postop from total laparoscop ic hysterecto my. She had had some greater than usual postoperat rosie pain and previous visit. Her pain is improved. She is here for follow-up on postoperat rosie pain. She is walking. She is returning gradually to normal activity. She denies any nausea, vomiting, fever, chills. She denies any chest pain or shortness of breath. She denies any problems with her incision sites. She will follow-up as needed. Health Concerns Section Related Observation LastModified by Organization Detai ls LastModified Time None Recorded Concern Status LastModified by Organization Details LastModified Time None Recorded Advance Directives Directive N: Payers Insurance Date Sequence Insurance Name Policy Number Policy Spaulding Covered Member ID Spaulding Member ID Guarantor Name 07/01/2021 1 [facility] [id number] Destiny Judge [id number] Destiny Judge Notes Date Note Type Note Provider Name and Address Organization Details Recorded Time 05/21/2021 text/html this patient is a 36-year-old female with severe pelvic pain and history of severe endometriosis. The patient also reports severe menorrhagia and dysmenorrhea. Her menorrhagia and dysmenorrhea or debilitating. She misses work several days at the time of her menses. After her menses she has a long episode vaginitis. Every time she has her menses. The patient has had a longstanding problem with HPV infection. Patient has a history of endometriosis. She had a surgery were a large endometrioma was removed and multiple endometriosis implants were removed. She had some relief but then failed adjunct treatments using OCPs after the surgery and her endometriosis pain returned. We had a lengthy discussion today. We returned [id number] for more than 25 minutes. More than 75% was counseling. Talked about treatment options. The patient would like definitive surgical treatment. This is very appropriate given the multitude of problems that she has that would be resolved with hysterectomy. We talked about keeping and surgically removing ovaries at the time of the surgery. Talked about HPV and the surgery. We agreed to proceed with total laparoscopic hysterectomy and right salpingectomy. She will return for colposcopic examination. She will await scheduling of the surgery. She will return for the informed consent process. Jay Sarabia MD [address], [place], [address], [facility] 05/21/2021 10:29:08 06/01/2021 text/html This patient is a 36-year-old female with severe menorrhagia who presents for preoperative visit and cervical biopsy. We have agreed to perform total laparoscopic hysterectomy and bilateral salpingectomy. The patient understands the procedure. The procedure was described to the patient in great detail. the patient also understands the risks. The risks were also explained in detail. She understands that injuries May occur during surgery. She understands these injuries can result in hospitalization, more surgery, and severe illness. She understands there is risk of hemorrhage and infection. She has a cervical lesion the intended biopsy today. Jay Sarabia MD [address], [place], [address], [facility] 06/01/2021 12:08:53 06/19/2021 text/html This patient is a 36-year-old female presents for postop follow-up. She is 1 week postop total laparoscopic hysterectomy bilateral salpingectomy. She is recovering normally. She does have some persistent postoperative pain at. Appears to be normal. She is getting around well and drove herself here today. I did not recommend that she do that. Her incisions are Clean dry and intact. She will follow-up in 2 weeks. Jay Sarabia MD [address], [place], [address], [facility] 06/19/2021 16:06:37 07/03/2021 text/html this patient is a 36-year-old female presents for postop follow-up. She is 3 weeks postop from total laparoscopic hysterectomy. She had had some greater than usual postoperative pain and previous visit. Her pain is improved. She is here for follow-up on postoperative pain. She is walking. She is returning gradually to normal activity. She denies any nausea, vomiting, fever, chills. She denies any chest pain or shortness of breath. She denies any problems with her incision sites. She will follow-up as needed. Jay Sarabia MD [address], [place], [address], [facility] 07/03/2021 18:28:53 OBGyn Episode No OBEpisode recorded.
[2025-02-26 12:41] VITALS: BP 175/108; PULSE 77; RESP 12; TEMP 36.6; O2SAT 99
[2025-02-26] MEDS: TETANUS,DIPHTHERIA,AC PERTUSSIS ADULT 0.5 ML (ADACEL) IM (12:58)
--- NOTE | 2025-02-26 13:04 | PC.NURSE ---
[employer] [place] [employer] FILLED OUT AND FAXED TO [phone]
--- OUTSIDE RECORDS SUMMARY | 2025-02-26 13:04 | XMS_ITS | Clinical Summary ---
Author Organization [facility] Address [address] [place] [address] Care Team Providers Care Health Education Director Name Role Phone None, Provider MD Primary [...] age to complete this topic Care Teams Health Education Director Relationship Specialty Start Date End Date None, Provider, MD PCP - General UNKNOWN PHYSICIAN SPECIALTY 07/30/22
--- NOTE | 2025-02-26 13:05 | PC.NURSE ---
On 02/26/25, the student, [MELISSA LOPZE ], provided care and completed [facility] documentation on this patient. I have reviewed the student's documentation and agree with the findings.
== END 2025-02-26 13:10 | disposition home or self-care (01) ==
LOC: CHSED 13:02
PROVIDERS: Emergency Provider Emergency Medicine; PCP Nurse Practitioner Family
DX: S61.452A Open bite of left hand, initial encounter (principal); I10 Essential (primary) hypertension; E11.9 Type 2 diabetes mellitus without complications; Z23 Encounter for immunization; W54.0XXA Bitten by dog, initial encounter
CPT/HCPCS: 90471; 90715; 99282